=== PATIENT | female | born 1935 | race Caucasian/White ===

== ENCOUNTER 2021-04-09 16:27 | Observation (INO) | payer MEDICARE, OTHER ==
[~2021-04-09] VITALS: Ht 165.1 cm; Wt 72.5 kg
[~2021-04-09 16:27] MED LIST: AMOXICILLIN500 MG PO; ASPIR 8181 MG PO; BACTRIM DS TAB1 EACH PO; CEPHALEXIN500 MG PO; CINNAMON500 MG PO; CIPRO500 MG PO; CLINDAMYCIN HC150 MG PO; COMPLETE MULTI1 EAC2 PO; COUMADIN5 MG PO; DILTIAZEM ER180 MG PO; DOXYCYCLINE HY100 MG PO; FUROSEMIDE40 MG PO; GLIMEPIRIDE4 MG PO; GLUCOTROL XL10 MG PO; LOPERAMIDE2 MG PO; LOVENOX120 MG SUB-Q; METFORMIN HCL750 MG PO; METOPROLOL TART50 MG PO; POTASSIUM CHLO20 ME1 PO; PRESERVISION A1 EACH PO; PRILOSEC OTC20 MG PO; TOPROL XL50 MG PO; TRIAMTERENE-HC1 EAC1 PO; VITAMIN B-12500 MCG PO; VITAMIN D-32000 UNIT PO; VITAMIN D325 MCG PO; WARFARIN SODIU2.5 MG PO; WARFARIN SODIUM5 MG PO
[2021-04-10] MEDS ORDERED: WARFARIN SODIU2.5 MG PO (07:32)
[2021-04-10] MEDS ORDERED: METFORMIN HCL500 MG PO (11:27)
[2021-04-10] MEDS ORDERED: TORSEMIDE20 MG PO (11:29)
--- NOTE | 2021-04-10 20:17 | EKG ---
[facility] [address] [place], [place] [address] Signed Atrial fibrillation Right bundle branch block Abnormal ECG When compared with ECG of 26-FEB-2020 17:50, No significant change was found Confirmed by GRAHAM WALKER DO ([id number]) on 04/10/2021 8:16:54 PM Electronically Signed By: GRAHAM WALKER DO 04/10/212016 PATIENT NAME: JANETH HOFFMAN Electrocardiogram DATE OF : 33 PHYSICIAN: GRAHAM WALKER DO REPORT #: [id number] REPORT IS CONFIDENTIAL AND NOT TO BE RELEASED WITHOUT AUTHORIZATION
== END 2021-04-11 13:00 | disposition home or self-care (01) ==
LOC: ED 16:27 → MS 16:28
PROVIDERS: ADMIT Student in an Organized Health Care Education/Training Program; ATTEND Student in an Organized Health Care Education/Training Program
DX: E83.42 Hypomagnesemia (principal); I95.1 Orthostatic hypotension; I48.19 Other persistent atrial fibrillation; E11.621 Type 2 diabetes mellitus with foot ulcer; L97.509 Non-pressure chronic ulcer of other part of unspecified foot with unspecified severity; E11.40 Type 2 diabetes mellitus with diabetic neuropathy, unspecified; I10 Essential (primary) hypertension; Z79.84 Long term (current) use of oral hypoglycemic drugs; Z79.01 Long term (current) use of anticoagulants; Z20.822 Contact with and (suspected) exposure to COVID-19; Z88.6 Allergy status to analgesic agent; Z88.2 Allergy status to sulfonamides
CPT/HCPCS: 80048; 80053; 83735; 84484; 85025; 85610; 93005; 93010; 97162; J1815; J3475; J7121; U0003

== ENCOUNTER 2022-03-12 00:39 | Inpatient (IN) | payer MEDICARE, OTHER ==
[~2022-03-12] VITALS: Ht 165.1 cm; Wt 73.5 kg
[~2022-03-12 00:39] MED LIST changes: +CLOPIDOGREL75 MG PO; +DIGOX125 MCG PO; +GLIPIZIDE ER10 MG PO; +LIPITOR20 MG PO; +METFORMIN HCL500 MG PO; +TORSEMIDE20 MG PO
--- OUTSIDE RECORDS SUMMARY | 2022-03-12 00:42 | XMS ---
PreManage Notification: JANETH HOFFMAN Security Mobile Nurse Events No recent Security Events currently on file CRITERIA MET - [facility] - Has Care Guidelines - [facility] - 2 Visits in 30 Days CARE PROVIDERS KAMAR ROMERO Internal Medicine 03/04/2020-Current PHONE: Unknown Cb has no Care Guidelines for this patient. Care History Medical/Surgical 05/01/2021 [facility] will be reaching out to patient for assessment. 03/04/2020 [facility] - Patient is currently established with [facility]. If patient is seen in the ED during business hours. Please contact CHWs at [facility]. Care Recommendation: If this patient has had 5 or more Emergency Department visits in the last 12 months.\T\nbsp; Patient will require education on the scope and purpose of the ED as an acute care provider not a Primary Care Provider and should not be utilized for chronic conditions.\T\nbsp; These are guidelines and the provider should exercise clinical judgment when providing care. E.D. VISIT COUNT (12 MO.) [address] [facility] TOTAL 4 NOTE: Visits indicate total known visits. ED/UCC VISIT TRACKING (12 MO.) 03/12/2022 00:40 [facility] TYPE: Emergency COMPLAINT: - BLOODY STOOL 02/17/2022 21:28 [facility] TYPE: Emergency COMPLAINT: - BLOOD SUGAR PROBLEM DIAGNOSES: - Weakness - Other chcf (current) drug therapy - Unspecified atrial fibrillation - Type 2 diabetes mellitus with diabetic neuropathy, unspecified - Type 2 diabetes mellitus with hyperglycemia - Contact with and (suspected) exposure to COVID-19 - Allergy status to other antibiotic agents - Dehydration - Essential (primary) hypertension - Allergy status to sulfonamides - Allergy status to other drugs, medicaments and biological substances - FPC (current) use of anticoagulants - Acute kidney failure, unspecified 04/29/2021 12:17 [facility] TYPE: Emergency COMPLAINT: - ABNORMAL LABS 04/09/2021 16:27 [facility] TYPE: Emergency COMPLAINT: - DIZZINESS INPATIENT VISIT TRACKING (12 MO.) 04/29/2021 12:18 [facility] TYPE: Observation COMPLAINT: - HYPOMAGNESEMIA DIAGNOSES: - Allergy status to analgesic agent - Unspecified atrial fibrillation - Essential (primary) hypertension - Hypomagnesemia - Contact with and (suspected) exposure to COVID-19 - Type 2 diabetes mellitus with diabetic neuropathy, unspecified - termination clerk (current) use of anticoagulants - Allergy status to other antibiotic agents - Allergy status to sulfonamides - FPC (current) use of oral hypoglycemic drugs 04/09/2021 16:28 [facility] TYPE: Observation COMPLAINT: - HYPOMAGNESEMIA DIAGNOSES: - Type 2 diabetes mellitus with foot ulcer - FPC (current) use of oral hypoglycemic drugs - Non-pressure chronic ulcer of other part of unspecified foot with unspecified severity - termination clerk (current) use of anticoagulants - Allergy status to sulfonamides - Hypomagnesemia - Allergy status to analgesic agent - Orthostatic hypotension - Type 2 diabetes mellitus with diabetic neuropathy, unspecified - Contact with and (suspected) exposure to COVID-19 - Essential (primary) hypertension - Other persistent atrial fibrillation [email or web address]
--- NOTE | 2022-03-12 03:06 | NUR ---
pt to ccu with ochoa rn via madeline - moved to bed with staff assist of lateral transfer. jordan to gravity bs 421 fingerstick, pt alert with zoëugher in room. denies needs, call light in reach - blood 1st unit fusing from er - continues in ccu at 200 rate. her is tachy 120-130 - dr. landis called and updated. confirmed only 1 unit of blood, and she would address hr and diabetic care on her assessment.
--- NOTE | 2022-03-12 03:20 | NUR ---
call to dr landis - update on hr 133, bs in 300's with no orders and blood 1 unit from er - clarify only 1 bag infused. will write further orders on assessment.
--- NOTE | 2022-03-12 04:55 | NUR ---
0445 blood complete - vitals wnl - iv flushed with ns. no signs or sx of reactions.
--- NOTE | 2022-03-12 06:54 | NUR ---
pt confused, pulled our her r hand iv - and was attempting to drink from the iv tubing - because she was thirsty. pt also removed gown and blkts - wm blankets provided new linen and repositioned up in bed wm blkt to arm to attempt new iv site iv fluids moved to left arm. no bm, no blood during this shift in ccu.
--- NOTE | 2022-03-12 07:10 | NUR ---
PT WITH INCREASED CONFUSION, PULLING OFF MONITORS AND REQUESTING TO LEAVE. RE ORIENTED,
--- NOTE | 2022-03-12 07:30 | NUR ---
REPORT RECIEVED, CARE OF PT ASSUMED AT THIS TIME. PT RESTING IN BED. IV FLUIDS INFUSING. DENIES PAIN OR DISCOMFORT. CALL LIGHT WITHIN REACH. WILL CONTINUE TO MONITOR.
--- NOTE | 2022-03-12 08:15 | NUR ---
IN ROOM TO COMPLETE ASSESSMENT. DR WALLACE AT BEDSIDE WELL. PT ALERT AND ORIENTED TO SELF, LOCATION, AND EVENT. PT DENIES PAIN. ABDOMEN SOFT AND NON TENDER. FINE CRACKLES NOTED IN RIGHT LOWER LUNG BASES. ALL OTHER AIR ESTRADA CLEAR. IN AFIB WITH RVR AT THIS TIME. 5 MG IV LOPRESSOR GIVEN PER MD ORDER (SEE EMAR). PT ALSO GIVEN PO METOPROLOL. PT HAD SMALL DARK BLOOD STOOL. PLAN ESTABLISHED FOR A CONSULT WITH DR OCHOA. IV PLACED IN PTS RIGHT FOREARM. BLOOD DRAWN FOR LAB. DAUGHTER NOW AT BEDSIDE. UNDERSTANDS THE PLAN OF CARE. CALL LIGHT WITHIN REACH. WILL CONTINUE TO MONITOR.
--- NOTE | 2022-03-12 08:30 | NUR ---
Spoke with pt and daughter. Pt lives alone in [place]. She uses a walker, ramp, and shower chair. She has a CG 2-3 times per week from [employer] and is on the [place] [facility]. Daughter is unsure of number of hours she received. Daughter and granddaughter assist pt daily or every other day. Per daughter, pt is homebound and is unable to leave the home with assist from family or a cg. Pt and daughter plan on pt returning home on dc. Daughter states this has been a hard month as pt is requiring more assist. Daughter works. We discussed other programs through [employer] and I will call Paulie and request meals on wheels for this pt.
--- NOTE | 2022-03-12 09:18 | NUR ---
DR OCHOA AT BEDSIDE TO ASSESS PT. PLAN ESTABLISHED FOR PT TO GET EGD LATER TODAY. ALL QUESTIONS ANSWREED. CONSENT SIGNED AND PLACED IN CHART. DAUGHTER REMAINS AT BEDSIDE. WILL CONTINUE TO MONITOR.
--- NOTE | 2022-03-12 11:30 | NUR ---
PT TO OR WITH OR STAFF ON STRETCHER.
--- NOTE | 2022-03-12 12:34 | NUR ---
PT BACK FOR SURGERY. PT STILL DROWSY BUT ABLE TO AWAKEN WITH VERBAL STIMULI. PT SLIGHTLY HYPOTENSIVE. ANESTHESIOLOGIST EDY HAD TO GIVEN PHENYLEPHRINE FOR HYPOTENSION IN PROCEDURE. ASSESSMENT COMPLETED AT THIS TIME. CRACKLES IN LUNG BASES WORSENED SINCE LAST ASSESSMENT PT HAD ANOTHER MODERATE SIZED BLOODY STOOL. PERICARE PROVIDED AND PT REPOSITIONED IN BED. IV MAGNESIUM, FLUIDS AND ABX INFUSING. THIS RN REMAINS AT BEDSIDE.
--- NOTE | 2022-03-12 12:52 | NUR ---
BEAU LAUREANO INFORMED ME PT WAS IN SURGERY. WILL FOLLOW
--- NOTE | 2022-03-12 12:55 | NUR ---
DISCUSSED PTS ASSESSMENT FINDINGS, INCLUDING CRACKLES IN BILATERAL LUNG BASES AND POOR URINE OUTPUT WITH DR WALLACE. VERBAL ORDER FOR ONE TIME DOSE OF IV LASIX RECIEVED (SEE EMAR).
--- NOTE | 2022-03-12 13:16 | NUR ---
RN IN ROOM TO ADMINISTER IV LASIX. PT ASLEEP SNORING UPON ENTRY, WAKES EASILY WITH TOUCH - STATES "OKAY" TO ANY QUESTIONS. DAUGHTER REMAINS AT BEDSIDE. BP SLIGHTLY IMPROVED AT 109/41, P 90. URINE OUT PUT 35ML FOR LAST 2 HOURS.
--- NOTE | 2022-03-12 14:26 | NUR ---
RN IN ROOM TO OBTAIN CBG AND ADMINISTER MEDICATIONS. PT WAKES EASILY WITH TOUCH AND SOUND. PT STARTED ON BOWEL PREP - NO DIFFICULTY SWALLOWING WITH HOB ELEVATED. ATTENDS C/D/I. PT GOES BACK TO SLEEP QUICKLY.
[2022-03-12] MEDS ORDERED: NOVOLIN N100 UNIT/1 SUB-Q (14:44)
[2022-03-12] MEDS ORDERED: NYSTATIN15 GM TOP (14:45)
[2022-03-12] MEDS ORDERED: REPAGLINIDE0.5 MG PO (14:45)
--- NOTE | 2022-03-12 15:08 | NUR ---
MED REC COMPLETE
--- NOTE | 2022-03-12 15:47 | NUR ---
ASSESSMENT COMPLETED. PT COMPLETED ONE BOTTLE OF BOWEL PREP. HAD ANOTHER MODERATE SIZED BLOODY INCONTINENT STOOL AND REPOSITIONED IN BED. FINE CRACKLES STILL NOTED IN BILATERAL LUNG BASES. PT HEART RATE IN THE 90S AT REST. BLOOD PRESSURES WNL. SPO2 - 94%. SKIN ON COCCYX IS RED, BUT BLANCHABLE. CALL [facility] REACH AND BED ALARM IN PLACE. WILL CONTINUE TO MONITOR.
--- NOTE | 2022-03-12 18:22 | NUR ---
PT HAD LARGE BLOODY STOOL. BLOOD IS MAIK RED. DR WALLACE NOTIFIED. LABS ORDERED AT THIS TIME. PT HEART RATE IN THE 90-100. SPO2 = 94% ON ROOM AIR. CALL LIGHT WITHIN REACH. BED ALARM IN PLACE. WILL CONTINUE TO MONITOR.
--- NOTE | 2022-03-12 19:10 | NUR ---
PT REPORT RECEIVED FROM YEIMY YANEZ. PT RESTING IN BED, MEDICATION INFUSING PER ORDER. NO NEEDS AT THIS TIME. CALL LIGHT IN REACH, RAILS UP, DOOR OPEN.
--- NOTE | 2022-03-12 19:50 | NUR ---
IN TO CLEAN UP PT DUE TO INCONT BM, NEW LINENS, CHUX, AND ATTENDS IN PLACE, VS CHECKED, I&Os ENTERED, NO FURTHER NEEDS AT THIS TIME, PT BOOSTED IN BED, BED ALARM SET
--- NOTE | 2022-03-12 21:00 | NUR ---
ASSESSMENT COMPLETED. SCHEDULED MEDS PROVIDED. PT ORIENTED TO ALL BUT DATE. IVs WNL, CDI, FLUSHED WELL. LUNGS DIM IN BASES. HEART TONES IRREGULAR. ABD SOFT, NONTENDER, PT DENIES PAIN. CMS INTACT. SKIN HAS BLANCHABLE REDNESS ON SACRUM AND SCATTERED BRUISING ON ARMS. SCHEDULED MEDS PROVIDED. NO OTHER NEEDS AT THIS TIME. CALL LIGHT IN REACH.
--- NOTE | 2022-03-12 21:29 | NUR ---
LAB AND RN IN ROOM TO ATTEMPT BLOOD DRAW FOR CULTURES. UNABLE TO GET BLOOD AT THIS TIME. CALL LIGHT IN REACH, RAILS UP.
--- NOTE | 2022-03-12 22:15 | NUR ---
IN TO REPLACE LEFT UPPER TELE LEAD, NO FURTHER NEEDS AT THIS TIME
--- NOTE | 2022-03-12 22:50 | NUR ---
IN TO CHECK SCDS ALARM, AJDUSTED LEFT CUFF, NO FURTHER NEEDS AT THIS TIME
--- NOTE | 2022-03-12 23:30 | NUR ---
IN WITH RN TO REPOSITON PT AND CLEAN UP INCONT BM, BOOSTED, ORAL SWAB COMPLETED FOR PT, NO FURTHER NEEDS AT THIS TIME
--- NOTE | 2022-03-12 23:59 | EKG ---
[facility] [address] [place] [address] Signed Atrial fibrillation with rapid ventricular response Right bundle branch block Abnormal ECG When compared with ECG of 17-FEB-2022 21:51, T wave inversion no longer evident in Anterior leads Confirmed by GALLO WALLACE MD ([id number]) on 03/12/2022 11:59:36 PM Electronically Signed By: GALLO WALLACE MD 03/12/22 2359 PATIENT NAME: JANETH HOFFMAN Electrocardiogram DATE OF : 33 PHYSICIAN: GALLO WALLACE MD REPORT #: [id number] REPORT IS CONFIDENTIAL AND NOT TO BE RELEASED WITHOUT AUTHORIZATION
--- NOTE | 2022-03-13 00:13 | NUR ---
ASSESSMENT COMPLETED. PT CHANGED AND REPOSITIONED, MODERATE AMOUNT OF DARK RED BLOOD IN BRIEFS. DUNHAM CARE PROVIDED. IVS WNL. PT DENIES PAIN. SCDs ON. NO CHANGES AT THIS TIME. RAILS UP, CALL LIGHT IN REACH.
--- NOTE | 2022-03-13 00:46 | NUR ---
NOTIFIED MD BY PHONE OF LOW UO. NO ORDERS RECEIVED.
--- NOTE | 2022-03-13 01:32 | NUR ---
PT REPOSITIONED. SCDs OFF PER PT REQUEST, EDUCATION PROVIDED. NO OTHER NEEDS. CALL LIGHT IN REACH.
--- NOTE | 2022-03-13 02:10 | NUR ---
CRISTO COMPLETED, RN INFORMED OF VALUE
--- NOTE | 2022-03-13 02:29 | NUR ---
PT RESTING IN BED, EYES CLOSED. WAKES TO VOICE. SCHEDULED MEDS PROVIDED. PT HAS REPOSITIONED SELF. NO OTHER NEEDS. CALL LIGHT IN REACH, RAILS UP.
--- NOTE | 2022-03-13 04:30 | NUR ---
IN TO GET VITALS, DAILY WT, ORAL CARE, DUNHAM CARE, INCONT BM, CLEANED, BOOSTED AND PILLOWS TO THE LEFT SIDE, NO FURTHER NEEDS AT THIS TIME
--- NOTE | 2022-03-13 04:30 | NUR ---
ASSESSMENT, VS AND I&O COMPLETED. DUNHAM WNL. IVS WNL. RFA IV RE-DRESSED. BRIEFS CHANGED, PT HAD SMALL AMOUNT OF DARK RED DISCHARGE IN BRIEFS. LUNGS DIM IN LOWER LOBES. SCATTERED BRUISING TO ARMS UNCHANGED. PT IS TALKING AND ORIENTED TO ALL BUT DATE. HEART TONES IRREGULAR, AFIB ON MONITOR, UNCHANGED. PT DENIES PAIN. PT HAS SOB WITH ACTIVITY, ROLLING SIDE TO SIDE. NO OTHER NEEDS AT THIS TIME. TELEVISION CABINET FINISHER IN ROOM FOR CARES.
--- NOTE | 2022-03-13 06:00 | NUR ---
IV MEDICATION COMPLETED. PT RESTING IN BED. NO NEEDS AT THIS TIME. CALL LIGHT IN REACH, RAILS UP.
--- NOTE | 2022-03-13 07:02 | NUR ---
RN SENT A NOTE IN [facility]aint ABOUT HGB ABD HCT LABS GOING DOWN THIS MORNING.
--- NOTE | 2022-03-13 07:36 | NUR ---
REPORT RECEIVED FROM NIGHT RN - PT ASLEEP ON SIDE, RR EVEN AND UNLABORED. NO DISTRESS NOTED. CALL LIGHT IN REACH, BED ALARM ON.
--- NOTE | 2022-03-13 08:15 | NUR ---
BLOOD ADMINISTRATION STARTED PER ORDER AND USING PROTOCOL CHECKLIST.
--- NOTE | 2022-03-13 08:30 | NUR ---
VS STABLE AFTER 15 MINUTE BLOOD INFUSION LAPSE. PT TOLERATING WITHOUT DIFFICULTY. ASSESSMENT COMPLETE, ORIENTATION IMPROVED THIS AM, TALKATIVE AND HOLDING CONVERSATION. SMALL GREEN/BROWN/RED BM CLEANED - NEGATIVE FOR MAIK BLOOD. DUNHAM PATENT AND URINE OUTPUT ADEQUATE PER HOUR. DAUGHTER AT BEDSIDE, ALL QUESTIONS ANSWERED.
--- NOTE | 2022-03-13 09:54 | NUR ---
RN ROUNDING ON PT - RESTING ON SIDE COMFORTABLY, BLOOD INFUSION CONTINUES. DENIES PAIN OR SOB. DAUGHTER AT BEDSIDE.
--- NOTE | 2022-03-13 10:40 | NUR ---
Spoke with pt and daughter, Aislinn. They deny needs. Pt will have a colonoscopy later today per daughter. Let them know I called and left a message for Paulie from [facility] asking if he could eval pt for MOW.
--- NOTE | 2022-03-13 11:30 | NUR ---
RN ROUNDING ON PT - RESTING IN BED ON SIDE, ABX INFUSING. DAUGHTER AT BEDSIDE.
--- NOTE | 2022-03-13 11:52 | NUR ---
PT RESTINMG AWAKENS TO THE SOUND OF MY VOICE. HER DAUGHTER JACQUELYN IS IN RM WELL. PT IS SOMEWHAT CONFUSED, SEEMS TO RELY ON HER DAUGHTER TO ANSWER SOME QUESTONS. PT DID WANT HER MAIL SORTER AND DELIVERY NOTIFIED-DID INFORM HIM SHE IS HERE. PT REQUESTED PRAYER, WILL FOLLOW
--- NOTE | 2022-03-13 12:19 | NUR ---
RN IN ROOM TO ASSESS PT - PT RESTING IN BED UPON ENTRY. WAKES EASILY WITH VOICE. PT DENIES COMPLAINTS. AAO. DUNHAM PATENT, URINE OUTPUT SUFFICENT. IV SITE TOLERATING ABX WITHOUT DIFFICULTY. LEFT LOWER LOBE LUNG SOUNDS WORSENING CRACKLES POST BLOOD INFUSION NOTED. PT DENIES SOB. VS STABLE. PT READY FOR COLO PROCEDURE.
--- NOTE | 2022-03-13 13:16 | NUR ---
RN ROUNDING ON PT - DENIES COMPLAINTS, REPOSISTIONED TO BACK. CLEAN CHUX PLACED UNDER PT AND ATTENDS REMOVED FOR PROCEDURE, LOOSE STOOLS HAVE CEASED. DAUGHTER REMAINS AT BEDSIDE.
--- NOTE | 2022-03-13 13:58 | NUR ---
PT OFF FLOOR TO OR VIA STRETCHER
--- NOTE | 2022-03-13 15:19 | NUR ---
PT BACK TO FLOOR FROM OR.
--- NOTE | 2022-03-13 15:40 | NUR ---
PATIENT IS DOING WELL POST PROCEDURE. PATIENT IS ON RA WITH SPO2 96%. PATIENT IS TOLERATING WELL.
--- NOTE | 2022-03-13 15:51 | NUR ---
DR MONTALVO IN ROOM AT THIS TIME TO ASSESS PT. PLAN ESTABLISHED TO DC PROJECT MANAGEMENT PROFESSOR AND DUNHAM. GIVE PT IV FLUIDS. PT NOW A MEDICAL FLOOR PT. PT ALERT AND ORIENTED. UNDERSTANDS PLAN OF CARE.
--- NOTE | 2022-03-13 16:28 | NUR ---
ASSESSMENT COMPLETED. DUNHAM CATHETER DC'D. WELL TOLERATED BY PT. IV FLUIDS NOW INFUSING. DIGOXIN ADMINISTERED.
--- NOTE | 2022-03-13 17:01 | NUR ---
PT UP TO BSC TO VOID. ONE PERSON ASSIST REQUIRED. PT NOW UP IN CHAIR. IV FLUIDS INFUSING. PT EATING CLEAR LIQUID TRAY. DAUGHER AT BEDSIDE. CALL LIGHT WITHIN REACH. WILL CONTINUE TO MONITOR.
--- NOTE | 2022-03-13 17:50 | NUR ---
PT TRANSFERRED TO UNIT FROM CCU. PT IS SITTING UP IN CHAIR. IV BOLUS RUNNING. PT IS A/O, RESPIRATIONS EVEN AND REGULAR. FAMILY AT BEDSIDE. CALL LIGHT WITHIN REACH.
--- NOTE | 2022-03-13 18:21 | NUR ---
PATIENT BACK TO BED AFTER MEAL. VITALS AND I/O'S COMPLETED. PT HAS NO OTHER NEEDS AT THIS TIME. DAUGHTER IN ROOM. CALL LIGHT WITHIN REACH.
--- NOTE | 2022-03-13 18:47 | NUR ---
ROUNDED ON PT. IVF BOLUS COMPLETED, CONTINUOUS NOW RUNNING. PT IS A/O, RESPIRATIONS EVEN AND REGULAR. CALL LIGHT WITHIN REACH.
--- NOTE | 2022-03-13 20:30 | NUR ---
IN TO ASSIST PT WITH INCONT BM, SMALL, NEW ATTENDS, NO FURTHER NEEDS AT THIS TIME
--- NOTE | 2022-03-13 21:00 | NUR ---
PATIENT RESTING IN BED, APPEARS TO BE HAVING LIQUID BMS. CBG 333 AT HS, NOTED ANTIBIOTICS ARE MIXED IN A D5 SOLUTION, ALSO PATIENT CONCERNED SHE IS NOT EATING HER NORMAL DIABETIC DIET THAT SHE IS USE TO. FULL BODY ASSESMENT DONE, NO ACUTE CHANGES. AMDINISTERED HS MEDICATIONS. APPEARS ALERT AND ORIENTED, CALLS APPROPRIATELTY.
--- NOTE | 2022-03-13 22:30 | NUR ---
NOTIFIED DR. MONTALVO OF PATIENT HAVING BLOODY STOOLS AND CONCERNS OF LOW H/H. DR. MONTALVO VERBALIZED OK.
--- NOTE | 2022-03-13 23:49 | NUR ---
PATIENT CALLED REPORTING NEEDING BRIEF CHANGED. PATIENT REPORTED CONCERNS OF SKIN BREAKDOWN AND POSSIBLE YEAST INFECTIONS FROM ANIKA SUPPLES AND CARE. CHANGED OUT BABY WIPES FOR BARRIER CLOTHS AND INSTEAD OF CLOSING ATTEND HAVE IT LAID OPEN IN BED. PATIENT VERBALIZED " THANK YOU" AND IS CONTENT WITH POC. WHEN CHANGING BRIEF, NOTED SMALL BLOOD CLOTS MIXED WITH BURGANDY STOOL. PROVIDED WARM BLANKETS AND PLACED PULSE OX ON FINGER. PATIENT 95% ON RA. NO OTHER NEEDS AT THIS TIME.
--- NOTE | 2022-03-14 00:32 | NUR ---
PATIENT CALLED AGAIN TO HAVE ATTEND CHANGED. SMALL BLOODY STOOL NOTED. PROVIDED ANIKA CARE. NO OTHER NEEDS AT THIS TIME.
--- NOTE | 2022-03-14 00:46 | NUR ---
INTO CHECK ON PATIENT, CPOX 85% ON ROOM AIR. PLACED PATIENT ON 2L NC, NOTIFIED RT JAVID. OXYGEN SAT 92% 2LNC.
--- NOTE | 2022-03-14 04:10 | NUR ---
CPOX ALARMING, PT HAD PULLED SENSOR OFF, REPLACED, PT THEN INCONT BM, CLEANED UP, NO FURTHER NEEDS AT THIS TIME
--- NOTE | 2022-03-14 05:01 | NUR ---
PATIENT HAD LOOSE BLOODY STOOLS ABOUT EVERY 2 HOURS THROUGHOUT THE NIGHT. INCONTINENT OF SOME, SOMETIMES ABLE TO TRANSFER OVER TO BSC. PATIENT DENIES ANY SOB OR DIZZINESS. VS WNL. GOOD URINE OUTPUT. NOTIFIED DR. MONTALVO OF BLOODY STOOLS.
--- NOTE | 2022-03-14 05:45 | NUR ---
IN TO GET PT CLEANED UP, PT HAD A BM, VS CHECKED, FRESH WATER GIVEN, NO FURTHER NEEDS AT THIS TIME
--- NOTE | 2022-03-14 07:30 | NUR ---
THIS RN AND BEAU HAWLEY RECEIVED SHIFT REPORT FROM BEAU COURTNEY. PATIENT RESTING QUIETLY ON HER RIGHT SIDE, RESPIRATIONS ARE REGULAR AND EVEN, EYES CLOSED, CALL LIGHT IS IN REACH. PATIET HAS NO CARE NEEDS AT THIS TIME. CALL LIGHT IS IN REACH.
--- NOTE | 2022-03-14 07:57 | NUR ---
IN TO ASSIST LABORATORY EQUIPMENT INSTALLER. 2 PERSON ASSIST PT TO COMMODE AND TO CHAIR. DARK RED LIQUID STOOL NOTED.
--- NOTE | 2022-03-14 08:16 | NUR ---
PATIENT UP IN CHAIR FOR MEAL AFTER USING BSC. BLOOD IN STOOL REPORTED TO NURSE AND WATER GIVEN. PT HAS NO OTHER NEEDS AT THIS TIME, CALL LIGHT WITHIN REACH.
--- NOTE | 2022-03-14 09:03 | NUR ---
IN ROOM TO GIVE MORNING MEDICATIONS. PT SITTING UP IN CHAIR WITH MEAL TRAY. PT TAKE PO MEDICAITONS WITH NO ISSUES. ASSESSMENT COMPLETE. RLL LUNG SOUNDS CRACKLES. PT HAS HX OF AFIB. BRUISING NOTED TO BUE. PT REPORTS NEUROPATHY IN BLE. PT WAS UNABLE TO TELL WHEN RLE WAS BEING TOUCHED, BUT COULD MOVE BLE WITH NO ISSUES AND FOLLOWS COMMANDS. NO OTHER NEEDS AT THIS TIME. PT SITTING IN CHAIR WITH CALL LIGHT IN REACH.
--- NOTE | 2022-03-14 10:25 | NUR ---
IN TO ANSWER CALL LIGHT. PT REQUESTING TO GO BACK TO BED. BERNABE RN IN ROOM TO ASSIST WITH 2PA. DARK RED LIQUID STOOL NOTED. TOILETING HYGIENE PERFORMED. PT BACK TO BED. PT STATES "DO YOU SEE THE WRITING ON THE CEILING?" PT A&O TO PERSON, PLACE AND TIME. PT HAS NO OTHER NEEDS AT THIS TIME. PT LAYING IN BED WITH CALL LIGHT IN REACH.
--- NOTE | 2022-03-14 10:52 | NUR ---
IN ROOM TO GIVE SCHEDULED MEDICATION, SEE AUGUSTO. PT LAYING IN BED, FAMILY IN THE ROOM. NO OTHER NEEDS AT THIS TIME.
--- NOTE | 2022-03-14 12:40 | NUR ---
IN ROOM TO GIVE INSULIN, SEE MAR. PT TOLERATES SUB-Q INJECTION WELL. MEAL TRAY AT BEDSIDE. PT LAYING IN BED WITH CALL LIGHT IN REACH. NO OTHER NEEDS AT THIS TIME.
--- NOTE | 2022-03-14 13:16 | NUR ---
PATIENT IN BED AFTER MEAL. VITALS AND I/O'S COMPLETED. PT HAS NO OTHER NEEDS AT THIS TIME. CALL LIGHT WITHIN REACH.
--- NOTE | 2022-03-14 13:39 | NUR ---
IN TO ANSWER CALL LIGHT. PT LAYING IN BED REQUESTING TOILETING HYGIENE. DR. MONTALVO IN ROOM. NEW ATTEND PLACED, NEW GOWN PLACED. NO OTHER NEEDS AT THIS TIME. PT LAYING IN BED WITH CALL LIGHT IN REACH.
--- NOTE | 2022-03-14 14:40 | NUR ---
IN ROOM TO ADMINISTER BLOOD. BERNABE RN IN ROOM AND VERIFIES BLOOD PRODUCT. PRE VITALS DONE. 15 MINUTE VITALS DONE. ASSESSMENT COMPLETE. PT LAYING IN BED WITH EYES OPEN. RUL LUNG SOUNDS CRACKLES. RLL DIMINISHED WITH CRACKLES. DARK RED LIQUID BM WITH SOME URINE NOTED. NO OTHER NEEDS AT THIS TIME. PT LAYING IN BED ON LEFT SIDE WITH CALL LIGHT IN REACH.
--- NOTE | 2022-03-14 16:10 | NUR ---
IN FOR PT ROUNDING. BERNABE RN IN ROOM. PT LAYING IN BED REQUESTING TOILETING. TOILETING CARE PROVIDED. 2PA FROM BED TO COMMODE AND BACK TO BED. PT LAYING IN BED WITH EYES OPEN. IV FLUSH RUNNING. NO OTHER NEEDS AT THIS TIME CALL LIGHT IN REACH.
--- NOTE | 2022-03-14 16:27 | NUR ---
PT REQUESTING WATER. WATER PROVIDED. NO OTHER NEEDS AT THIS TIME. CALL LIGHT IN REACH. PT SITTING UP IN BED.
--- NOTE | 2022-03-14 16:45 | NUR ---
IN ROOM DUE TO IV PUMP ALARMING. FLUSH FINISHED. TOTAL VOLUME INFUSED 446, 300 OF BLOOD AND 146 OF NS. PACKING ROOM WORKER IN ROOM TO HELP TRANSFER PT TO CHAIR. 2PA FROM BED TO CHAIR. NO OTHER NEEDS FROM THIS RN AT THIS TIME. CALL LIGHT IN REACH.
--- NOTE | 2022-03-14 17:46 | NUR ---
IN TO GIVE EVENING INSULIN. PT SITTING UP IN CHAIR WITH MEAL TRAY. PT TOLERATES SUB-Q INJECTION WELL. FAMILY IN THE ROOM. CALL LIGHT IN REACH. NO OTHER NEEDS AT THIS TIME.
--- NOTE | 2022-03-14 18:25 | NUR ---
THIS RN CALLED DR. MONTALVO TO INFORM HIM THAT THE PATIENT'S POST OP B/P WAS 129/109 AT 1645 AND WAS NOW AT 139/90. VERBALIZED UNDERSTANDING AND AND HAD NO NEW ORDERS FOR ME AT THIS TIME.
--- NOTE | 2022-03-14 19:30 | NUR ---
REPORT RECEIVED FROM DAY RN - PT RESTING IN BED AWAKE, DENIES NEEDS AT THIS TIME, DAUGHTER AT BEDSIDE.
--- NOTE | 2022-03-14 20:33 | NUR ---
RN IN ROOM TO ASSESS PT AND ADMINISTER SCHEDULED MEDICATIONS. PT AWAKE IN BED RESTING ON SIDE. PT AAO, STATES SHE FEELS BETTER THIS EVENING. DAUGHTER UPDATED ON CBC VALUES THIS EVENING POST BLOOD TRANSFUSION. DENIES QUESTIONS AT THIS TIME.
--- NOTE | 2022-03-14 21:21 | NUR ---
PATIENT CALLED, REQUEST TO GET UP TO BS. MEENUN TRANSFERED TO BS WITH 1 PERSON ASSIST AND DID WELL WITH WALKER. VOIDED MIX URINE/BLOODY LIQUID STOOL 600 ML. PAD SATURATED WITH BLOODY LIQUID STOOL. PROVIDED ANIKA CARE, AND OFFERED HS CARES. PATIENT BACK TO BED STATING " I HAVE TO STAY INDEPENDANT" PATIENT ABLE TO SLOWLY MOVE BACK OVER, APPEARED FATIGUED AFTER ACTIVITY. PROVIDED WARM BLANKET, AND DIET KO. NO OTHER NEEDS AT THIS TIME. WARM COMPRESS REAPPLIED TO NECK. PATIENT STATED " THE WARMTH IS REALLY HELPING MY SORE NECK" RATES PAIN IN NECK A 4/10 ON PAIN SCALE. CALL LIGHT WITHIN REACH.
--- NOTE | 2022-03-14 22:30 | NUR ---
IN TO ASSIST PT WITH THE BSC, 1PA FWW PIVOT, BACK TO BED, NO FURTHER NEEDS AT THIS TIME
--- NOTE | 2022-03-15 | NUR ---
RN ROUNDING ON PT - RESTING IN BED ASLEEP ON SIDE. CALL LIGHT IN REACH.
--- NOTE | 2022-03-15 00:45 | NUR ---
RN IN ROOM TO ASSIST PT TO BSC. PT INC OF MODERATE AMOUNT OF MAIK BLOOD WITH BURGENDY CLOTS. PT CLEANED AND LINENS CHANGED. DENIES DIZZINESS OR SOB WITH STAND AND PIVOT. BACK TO BED WITH WARM BLANKETS. CALL LIGHT IN REACH.
--- NOTE | 2022-03-15 03:20 | NUR ---
INSTRUMENT PROCESSING TECH IN ROOM TO OBTAIN CBG. PT FALLS BACK ASLEEP QUICKLY AFTERWARD, NO INSULIN NEEDED.
--- NOTE | 2022-03-15 06:00 | NUR ---
RN IN ROOM TO ASSESS PT AND ADMINISTER SCHEDULED MED. PT ASLEEP UPON ENTRY BUT WAKES EASILY WITH SOUND. PT DENIES PAIN OR COMPLAINTS. ASSESSMENT UNCHANGED. ATTENDS CLEAN AND DRY. SCDS IN PLACE. CALL LIGHT IN REACH.
--- NOTE | 2022-03-15 07:30 | NUR ---
PATIENT GOT UP TO USE THE CAMMODE. BLOOD AND CLOTS IN THE STOOL. PATIENT GOT UP TO THE CHAIR. CALL LIGHT WITH IN REACH. NO FURTHER NEEDS AT THIS TIME.
--- NOTE | 2022-03-15 07:30 | NUR ---
REPORT RECEIVED FROM BEAU KING. CHIEF DIETITIAN IN ROOM WITH ANOTHER RN ASSISTING PT WITH TOILETING. NO NEEDS FROM THIS RN AT THIS TIME.
--- NOTE | 2022-03-15 07:30 | NUR ---
THIS RN AND BEAU HAWLEY RECEIVED SHIFT REPORT FROM BEAU KING. PATIENT RESTING QUIETLY ON HER RIGHT SIDE, EYES CLOSED, RESPIRATIONS ARE REGULAR AND EVEN, AND CALL LIGHT IS IN REACH. PATIENT HAS NO NURSE CARE NEEDS AT THIS TIME.
--- NOTE | 2022-03-15 08:56 | NUR ---
IN ROOM FOR MORNING MEDICATIONS. PT SITTING UP IN CHAIR WITH MEAL TRAY. PT TOLERATES SUB-Q INJECTION WELL, NO ISSUES. ASSESSMENT COMPLETE. EDEMA TO BLE, PTs LEGS ELEVATED IN CHAIR. SCATTERED BRUISING NOTED TO BUE. LLL LUNG SOUNDS DIMINISHED. PT A&O TO PERSON, PLACE AND DATE. NO OTHER NEEDS AT THIS TIME. PT SITTING UP IN CHAIR WITH MEAL TRAY AND CALL LIGHT IN REACH.
--- NOTE | 2022-03-15 10:45 | NUR ---
IN ROOM TO ROUND ON PT. PT SITTING IN CHIR WITH EYES CLOSED. PT AWAKES EASILY WHEN SPOKEN TO. PT REQUESTING TO GO BACK TO BED. BERNABE RN IN ROOM TO SUPERVISE. PT ABLE TO GET UP FROM CHAIR BY SELF AND USE FWW TO BED WITH STANDBY ASSIST. PT LAYING IN BED WITH HOB SLIGHTLY ELEVATED AND SCDs ON. NO OTHER NEEDS AT THIS TIME. CALL LIGHT IN REACH.
--- NOTE | 2022-03-15 13:01 | NUR ---
IN TO GIVE INSULIN, SEE MAR. VARELA RN IN ROOM ASSISTING WITH TOILETING. PT TOLERATED SUB-Q INJECTION WELL. ASSISTED PT FROM COMMODE TO CHAIR. MEAL TRAY IN ROOM. NO OTHER NEEDS AT THIS TIME. CALL LIGHT IN REACH.
--- NOTE | 2022-03-15 14:03 | NUR ---
IN ROOM TO ROUND ON PT. PT REQUESTING TO GET BACK INTO BED. PT ABLE TO PUSH UP FROM CHAIR TO STAND AND AMBULATES WITH FWW TO BED. ASSESSMENT COMPLETE. NO CHANGES FROM PREVIOUS ASSESSMENT. FAMILY FRIENDS IN THE ROOM. PT LAYING IN BED WITH CALL LIGHT IN REACH. NO OTHER NEEDS AT THIS TIME.
--- NOTE | 2022-03-15 15:13 | NUR ---
RADIOLOGY WANTED A GFR WITHIN 24 HOURS THAT IS GREATER THAN 40. CALLED DR[address] MONTALVO, NEW ORDERS RECEIVED. BMP NOW AND TO RUN 1800 LABS NOW WELL. CALLED LAB, LAB ON THEIR WAY.
--- NOTE | 2022-03-15 15:30 | NUR ---
IN TO ASSIST WITH TOILETING. BEAU KIDD IN ROOM. PT ABLE TO PUSH UP FROM BED TO STANDING POSITION WITH FWW AND TURN TO USE COMMODE. PT ABLE TO PUSH UP FROM COMMODE TO STANDING POSTION WITH FWW AND TURN AND SIT BACK DOWN ON BED ONCE FINISHED WITH TOILETING. BM IS GREEN/BROWN LIQUID WITH DARK RED FLECKS. PT REQUESTING WATER WITH NO ICE. WATER WITH NO ICE PROVIDED. NO OTHER NEEDS AT THIS TIME.
--- NOTE | 2022-03-15 16:50 | NUR ---
IN ROOM TO GIVE PT CONTRAST. PT DRINKS CONTRAST WITH NO ISSUES. PT REQUESTS TO USE COMMODE. STANDBY ASSIST FROM BED TO COMMODE AND BACK TO BED. MEAL TRAY DELIVERED. NO OTHER NEEDS AT THIS TIME. CALL LIGHT IN REACH.
--- NOTE | 2022-03-15 17:21 | NUR ---
PATIENT RESTING COMFORTABLY AFTER MEAL. VITALS AND I/O'S COMPLETED. PT HAS NO OTHER NEEDS AT THIS TIME. CALL LIGHT WITHIN REACH.
--- NOTE | 2022-03-15 17:28 | NUR ---
IN ROOM TO GIVE MEDICATION, SEE MAR. PT TAKES PO MEDICATION WITH NO ISSUES AND TOLERATES SUB-Q INJECTION WELL. PT SITTING IN BED WITH CALL LIGHT IN REACH. PT RESPONDS APPROPRIATLEY. PT REQUESTING MORE WATER, WATER PROVIDED. NO OTHER NEEDS AT THIS TIME.
--- NOTE | 2022-03-15 18:07 | NUR ---
2ND DOSE OF GASTRGRAFIN GIVEN IN 20 OZ. PATIENT HAD A LARGE LIQUID BM INCONTINENEC AND THIS RN AND BEAU HAWLEY ASSISTED PATIENT WITH FWW TO THE BED SIDE COMMODE WHERE SHE VOIDED 500MLS URINE. THIS IS THE LARGEST BM PATIENT HAS HAD TODAY AND NO MAIK RED BLOOD OR LARGE CLOTS, JUST LIQQUIDY RUST COLORED STOOL. PATIENT BACK IN BED STILL WORKING ON PO CONTRAST. RADIOLOGY SCHEDULED TO ARRIVE AT [address]. CALL LIGHT IN REACH AND FAMILY MEMEBER AT BEDSIDE.
--- NOTE | 2022-03-15 19:00 | NUR ---
THIS RN CALLED AND INFORMED HIM ABOUT THE PATIENT'S PREVIOUS LARGE RUST COLORED BM, JUST TO LET HIM KNOW THERE WAS STILL SOME BLOOD COMING OUT, BUT NO MAIK BLOOD OR CLOTS. VERBALIZED UNDERSTANDING. PATIENT ON THE WAY TO CT.
--- NOTE | 2022-03-15 19:50 | NUR ---
PATIENT BACK FROM CT AND INCONT OF STOOL. PATIENT ASSISTED A 1PA W/FWW TO [facility]. PATIENT ABLE TO VOID. BED BATH COMPLETED. NEW GOWN AND SOCKS PROVIDED. PATIENT IS NOW IN BED RESTING. PATIENT DENIES ANY FURTHER NEEDS. CALL LIGHT IN REACH. FAMILY AT THE BEDSIDE.
--- NOTE | 2022-03-15 21:01 | NUR ---
1 PA/SBA. PATIENT GOT UP FROM BED TO BEDSIDE COMMODE USING WALKER. PATIENT HAD UNCONTROLLABLE BM AND PEEING AT THE SAME TIME BEFORE SITTING ON THE COMMODE. CHANGED MESH UNDERWEAR WITH PAD. CHANGED SCD LEG WRAP. PATIENT IS BACK IN BED. LORA YANEZ WAS WITH PATIENT.
--- NOTE | 2022-03-15 21:10 | NUR ---
PATIENT CBG 68, NON-SYMPTOMATIC. PATIENT STATES " I CANNOT TELL THAT I AM LOW" PROVIDED 240 ML OF CRANBERRY AND KO SPRITE WITH 1 SUGAR PACKET. PATIENT TOLERATED WELL AT 2044 2099 RECHECKED BLOOD SUGAR, CBG 71. PROVIDED PATIENT WITH CLEAR ENSURE 240 ML. LACI APPEARS TO BE TOLERATING FLUIDS WELL, HOB ELEVATED. RECHECK 15MINUTES.
--- NOTE | 2022-03-15 21:34 | NUR ---
RECHECKED CBG 10O. NOTIFIED DR. MONTALVO WHO VERBALIZED WOULD ADJUST INSULIN LEVELS. ALSO NOTIFIED OF CT RESULTS BACK. PATIENT UPDATED, PROVIDED WARM BLANKET. NO OTHER NEEDS AT THIS TIME.
--- NOTE | 2022-03-15 23:35 | NUR ---
INTO THE ROOM CALL LIGHT ANSWERED. 1 PA TO BEDSIDE COMMODE. PATIENT WAS POOPING BEFORE REACHING THE COMMODE. PATIENT IS BACK IN BED. ASSISTED IN WIPING/CLEANING ANIKA AREA. APPLIED BARRIER CREAM. PATIENT IS BACK IN BED. SCD'S BACK ON. CALL LIGHT WITHIN REACH.
--- NOTE | 2022-03-16 | NUR ---
PATIENT UP TO BSC, VOIDED 300 ML OF URINE, NO STOOL. PATIENT STBY ASSIST WITH WALKER, STEADY ON FEET. BACK INTO BED USING INCENTIVE SPIROMETER, ABLE TO RAISE WAFER TO 1200 ML. PROVIDED EDUCATION ON PREVENTION OF PNEAMONIA.
--- NOTE | 2022-03-16 01:28 | NUR ---
CBG 172, ADMINISTERED 2 UNITS OF HUMALOG PER SLIDING SCALE, ALONG WITH 0200 DOSE OF SODIUM BICARBONATE AND POTASSIUM PO. PATIENT TOLERATED WELL WITH SIPS OF CLEAR ENSURE. PATIENT BACK TO SLEEP, APPEARS TO BE RESTING WELL.
--- NOTE | 2022-03-16 03:26 | NUR ---
APPEARS TO BE RESTING SOUNDLY. LIGHTS ON PER HER REQUEST. CALL LIGHT WITHIN REACH.
--- NOTE | 2022-03-16 04:12 | NUR ---
PATIENT CALLED TO USE BSC, TRASFERED WITH STBY AND WALKER. STEADY ON FEET, PATIENT REQUESTED TO BE ABLE TO SIT ON BSC FOR AWHILE. VERBALIZED WILL CALL WHEN READY. APPEARS AAOX3. CALL LIGHT IN HAND.
--- NOTE | 2022-03-16 04:25 | NUR ---
500ML OF URINE AND (LIN) BLOODY LIQUID STOOL MEASURED. CLEANSED AND APPLIED BARRIER OINTMENT. PATIENT THEN BACK TO BED, APPEARS STEADY ON FEET. PATIENT USING INCENTIVE SPIROMETER. VS WNL.
--- NOTE | 2022-03-16 07:15 | NUR ---
REPORT RECEIVED FROM BEAU COURTNEY. PT SITTING UP IN BED WITH EYES CLOSED. RR EVEN AND UNLABORED. NO NEEDS IDENTIFIED AT THIS TIME.
--- NOTE | 2022-03-16 08:14 | NUR ---
IN ROOM TO GIVE MEDICATION. PT SITTING UP IN CHAIR WITH LEGS ELEVATED. PT STATES "I AM STILL SLEEPY" PT AWAKENS EASILY. SUB-Q INSULIN INJECTION TOLERATED WELL BY PT. ASSESSMENT COMPLETE. RLL AND LLL LUNG SOUNDS DIMINISHED. HEART RHYTHM IRREGULAR WHEN AUSCULTATING. BRUISING TO BUE. EDEMA TO BUE AND BLE. PT REQUESTING AN EXTRA PILLOW BEHIND HEAD. PILLOW PLACED BEHIND HEAD. NO OTHER NEEDS AT THIS TIME. CALL LIGHT IN REACH.
--- NOTE | 2022-03-16 10:15 | NUR ---
IN ROOM TO ASSIST DIRECTOR OF MARKETING [employer] ADS WITH TOILETING PT. PT ABLE TO PUSH SELF UP FROM CHAIR TO STANDING POSITION AND USE FWW TO COMMODE. LIQUID STOOL MAROON IN COLOR MIXED WITH URINE ALONG WITH WHAT APPEARES TO BE TWO PILL LIKE TABLETS. PT OFFERED SHOWER, PT ACCEPTS SHOWER. PT AMBULATES WITH FWW AND STANDBY ASSIST TO SHOWER. SHOWER COMPLETED BY TONNY MITCHELL. PT AMBULATES FROM SHOWER TO BED AND REYES OWN HAIR. NO OTHER NEEDS FROM THIS RN AT THIS TIME. TONNY MITCHELL STILL IN ROOM.
--- NOTE | 2022-03-16 11:11 | NUR ---
ANSWERED PATIENT'S CALL LIGHT. MARLEEN WAS COMING TO HELP PUT HER BACK TO BED. SHE CHANGED HER MIND AND SAID SHE HAD TO USE THE BEDSIDE COMMODE. WHILE SHE WAS SITTING THERE I ASKED HER IF SHE WOULD LIKE TO TAKE A SHOWER AND SHE SAID IT WAS UP TO US. SHE SAID MAYBE LATER. WHEN WE WERE GETTING READY TO GET HER OFF THE BEDSIDE COMMODE I SAID WE WILL GET YOU BACK TO BED AND SHE SAID I THOUGHT I WAS GETTING A SHOWER. SO SHE GOT SHOWER.
--- NOTE | 2022-03-16 11:51 | NUR ---
IN ROOM TO ADMINISTER INSULIN. PT SITTING UP IN CHIAR WITH LEGS ELEVATED. PT TOLERATES SUB-Q INJECTION WELL. DR. MONTALVO IN ROOM TALKING TO PT ABOUT DC TODAY. ORDERS RECEIVED TO DC PT TODAY. QUESTIONS ANSWERED. PT CALLING FAMILY FOR RIDE HOME. NO OTHER NEEDS AT THIS TIME. CALL LIGHT IN REACH.
--- NOTE | 2022-03-16 12:15 | NUR ---
Received a call from Roseanne Vitaly, pts daughter. States mom had called and is planning on dc at 2 pm today. Let her know I have not seen pt yet. She states concern as they are not ready for pt to dc. They threw out pts bed as she had a GI bleed on it. She states they are also concerned pt will be weak and unable to walk from the car into the home on dc. Updated, per 929 report pt is up in the room without problem and anxious to go home. I will call Dr. Bansal and request a PT eval. Spoke with Dr. Bansal and he ordered PT eval and states he will order PT for this pt when eval is completed.
--- NOTE | 2022-03-16 12:45 | NUR ---
IN ROOM TO ANSWER CALL LIGHT. PT SITTING UP IN CHAIR WITH MEAL TRAY. PT REPORTS "I DO NOT KNOW WHERE THIS IS COMMING FROM" PTs TRAY HAD MASHED POTATOES AND GRAVY, THE GRAVY HAD GOTTEN ON PTs ARM. PT REPORTS "I THOUGHT I WAS BLEEDING." THIS RN GRABBED A WASH CLOTH AND CLEANED UP THE GRAVY FROM THE PTs ARM AND CHAIR. PT REPORTS "THE BROCCLI IS NOT TENDER ENOUGH FOR ME TO EAT. I WILL NO DRINK THE MILK." THIS RN OFFERED TEA, PT ACCEPTS TEA. OFFERED IF PT WANTED SOMETHING ELSE TO REPLACE THE BROCCLI, PT DECLINED. NO OTHER NEEDS AT THIS TIME. PT SITTING UP IN CHIAR WITH MEAL TRAY. CALL LIGHT IN REACH.
--- NOTE | 2022-03-16 14:23 | NUR ---
PT ASLEEP, DID NOT DISTURB
--- NOTE | 2022-03-16 14:25 | NUR ---
THIS RN IN TO SEE PATIENT AND PT IS IN THE ROOM DOING AN EVAL AT THIS TIME.
--- NOTE | 2022-03-16 14:30 | NUR ---
Notified by Dr. Serna, pt had a stroke and he will notify the family she will not discharge.
--- NOTE | 2022-03-16 14:33 | NUR ---
PATIENT WORKING WITH PHYSICAL THERAPY PRE DISCHARGE WHEN PATIENT BECAME VERBALLY UNRESPONSIVE (1425). CODE STROKE INITIATED VIA [employer] [place] MACHINE TENDER AT 1427, VITALS DONE AND ENTERED. PATIENT IS SLURRING WORDS, GAZE FIXED TO RIGHT. DR. MONTALVO IN ROOM. PATIENT TO CT SCAN AT 1429.
--- NOTE | 2022-03-16 15:30 | NUR ---
THIS RN PRESENT IN THE ROOM WITH PATIENT. NIH STROKE SCORE=22. PATIENT'S SPEECH IS A LITTLE SLURRED, BUT SHE IS ORIENTED TO PERSON PLACE AND TIME. PATIENT UNABLE TO MOVE HER LEFT ARM AND LEG. PATIENT GAZE IS STUCK IN THE RIGHT UPPER FIELD AT THIS TIME. NEW 20G IV STARTED IN THE LAC. THIS RN AND BEAU HAWLEY REMAIN AT BEDSIDE WITH PATIENT.
--- NOTE | 2022-03-16 15:45 | NUR ---
PATIENT ABLE TO READ ALL PHRASES NOW FOR NIH STROKE SCALE. PATIENT IS NOW MOVING ALL LIMBS WITH SOME PROFOUND WEAKNESS IN THE LEFT HAND. PATIENT ABLE TO NAME MOST OF THE ITEMS ON THE VISUAL SHEET. PATIENT ABLE TO TURN HER HEAD TO THE LEFT NOW AND CAN FOLLOW MY FINGER VISUALLY, BUT NO PAST CENTER TO THE LEFT.
--- NOTE | 2022-03-16 16:00 | NUR ---
PATIENT'S CONDITION CONTINUES TO IMPROVE. MORE CONTROLLED MOVEMENT OF THE LEFT LEG AND LEFT ARM IS PRESENT, PATIENT'S VERBAL RESPONSE IS A LITTLE MORE UNDERSTANDABLE. PATIENT CAN FOLLOW MY VOICE AND TURN HER HEAD TO THE LEFT NOW, BUT STILL CAN'T MOVE HER EYES PAST MIDLINE TO THE LEFT AND CAN'T SEE IN THE LEFT VISUAL FIELD. THIS RN AND BEAU HAWLEY REMAIN AT BEDSIDE.
--- NOTE | 2022-03-16 16:30 | NUR ---
PATIENT CONTINUES TO IMPROVE. PATIENT NOW HAS CONTROLLED MOVEMENT OF HER LEFT EXTREMETIES AND HAS NO DRIFT WITH HER LEFT ARM OR LEFT LEG. NIH SCORE NOW 13 AND BEAU LOCK FROM EDUCATION PRESENT IN THE ROOM HELPING WITH EXAM.
--- NOTE | 2022-03-16 17:05 | NUR ---
THIS RN PERFORMED PATIENT BEDSIDE SWALLOW EVAL AND PATIENT NOT EVEN ABLE TO SWOLLOW ONE TEASPOON OF WATER WITH OUT COUGHING AND CHOKING. DR. MONTALVO WAS CALLED AND HE WILL CHANGE ALL PATIENT'S MEDS TO IV. LAB HAS DRWAN BLOOD FOR A CROSSMATCH AND AWITING THIS TO BE DONE TO GIVE A TRANSFUSION. HAS BEE IN TWICE SINCE THE EVENT OT EVALUATE THE PATIENT AND HAS ALSO BEEN IN TO SEE THE PATIENT AND TALK WITH HER. HAS BEEN CONTACTING THE PATIENT'S DAUGHTERS. THIS RN REMAINS IN THE ROOM WITH THE PATIENT AT THISTIME. PATIENT HAS JUST USED THE BED RODRIGUEZ TO VOID AND HAS HAD A LITTLE MORE LIQUIDY RUST COLORED STOOL. CALL LIGHT IN REACH AND BED IN THE LOW POSITION.
--- NOTE | 2022-03-16 17:39 | PATH ---
[facility] [address], [place] [address] Signed SPECIMEN(S): A STOMACH BIOPSY SPECIMEN SOURCE: A. STOMACH BIOPSY CLINICAL HISTORY: Pre: GI bleed. Post: Multiple polyps of stomach FINAL PATHOLOGIC DIAGNOSIS: Stomach biopsy: - Benign fundic gland polyps (three fragments). JVR:[id number] MICROSCOPIC EXAMINATION: Histologic sections of all submitted blocks are examined by light microscopy. These findings, together with the gross examination, support the pathologic diagnosis. GROSS DESCRIPTION: The specimen, labeled "PS, per the requisition, stomach biopsy," is received in formalin and consists of three vora soft tissue fragments that measure 0.3 cm in greatest dimension. The specimen is entirely submitted in cassette (A1). CA (under the direct supervision of a pathologist) The Gross Description was prepared using a voice recognition system. The report was reviewed for accuracy; however, sound-alike word errors, addition and/or deletions may occur. If there is any question about this report, please contact Client Services. PERFORMING LABORATORY: The technical component was performed by [facility], [address] [place] [id number] (CLIA# [id number]). Professional interpretation was performed by [facility], [address] [place] [id number] (CLIA#: [id number]). Diagnostician: Charles Todd MD Pathologist Electronically Signed 03/16/2022 PATIENT NAME: JANETH HOFFMAN PATHOLOGY DATE OF : 33 REPORT #: [id number] PHYSICIAN: SHATNANU MENA PCP: KAMAR ROMERO DO REPORT IS CONFIDENTIAL AND NOT TO BE RELEASED WITHOUT AUTHORIZATION
--- NOTE | 2022-03-16 18:11 | NUR ---
PATIENT ABLE TO PUSH CALL LIGHT, REQUESTED TO GET UP TO VOID. PATIENT WAS A 2 MAX ASSIST TO THE COMMODE, 3PA FROM COMMODE TO BED.
--- NOTE | 2022-03-16 18:45 | NUR ---
PATIENT REMAINS SITTING UP WITH HOB >30 DEGREES. PATIENT ABLE TO PUSH CALL LIGHT AND IS ORIENTED. PATIENT HAS NO CARE NEEDS AT THIS TIME. CALL LIGHT IN REACH.
--- NOTE | 2022-03-16 19:26 | NUR ---
IN TO ANSWER CALL LIGHT. PT REPORTS ACCIDENTALLY HITTING CALL LIGHT. PT SITTING UP IN BED. PT REPORTS NO NEEDS AT THIS TIME. DAUGHTER IN ROOM. DAUGHTER REPORTS NO NEEDS AT THIS TIME. CALL LIGHT IN REACH.
--- NOTE | 2022-03-16 19:29 | NUR ---
received report from offgoing shift. Pt resting in room quietly, breathing even and unlabored. Call light in reach, no complaint of pain at this time.
--- NOTE | 2022-03-16 19:41 | NUR ---
THIS RN AND BEAU HAWLEY IN TO RECHECK PATIENT'S B/P AND VS AND SAY GOOD NIGHT FOR THE EVENING. CALL LIGHT IS IN REACH AND PATIENT'S DAUGHTER IS AT BEDSIDE.
--- NOTE | 2022-03-16 20:23 | NUR ---
Spoke with Dr. Serna on telephone concerning placing pt on Telemetry, confirmed via readback that MD does not want Pt on telemetry because it is "intended to search for AFIB" which this Pt has already been diagnosed with. also clarified via readback that pt is to receive 2 units of PRBC.
--- NOTE | 2022-03-16 22:13 | NUR ---
in pt room for rounding. Pt resting peacefully, breathing even and unlabored, no signs of discomfort or pain. Pt call light in reach
--- NOTE | 2022-03-16 23:36 | NUR ---
CALL LIGHT ANSWERED. PT INCONTINENT OF LARGE AMOUNT OF RED LIQUID PER RECTUM. ANIKA CARE DONE BY THIS RN WITH PICKLE CUTTER RN ASSIST. CLEAN BRIEF PLACED. PT DENIES FEELING DIZZY OR LIGHTHEADED. VS WNL. BLOOD INFUSING PER ORDERL. NO FURTHER NEEDS AT THIS TIME. BEAU CHARLES AT BEDSIDE.
--- NOTE | 2022-03-17 00:01 | NUR ---
in pt room for rounding. Pt resting comfortably. Pt has had anni red blood in bowels. MD notified, no new orders, continuing to monitor, call light in reach, no complaint of pain
--- NOTE | 2022-03-17 00:10 | NUR ---
CALL LIGHT ANSWERED. ASSISTED PT TO BEDPAN TO VOID. STAFF ASSIST WITH ANIKA CARE. 2PA TO REPOSITION IN BED. PT ABLE TO ASSIST WITH CARES AND FOLLOW DIRECTIONS. PT REPORTS SHE IS COMFORTABLE. BLOOD INFUSING WNL. NO FURTHER NEEDS.
--- NOTE | 2022-03-17 00:54 | NUR ---
PT ASSISTED TO BEDPAN TO VOID AND PASS SMALL AMOUNT CLOTTED BLOOD PER RECTUM. STAFF ASSIST WITH ANIKA CARE. ANIKA AREA RED, BARRIER CREAM APPLIED. PT REOPOSITIONED WITH PILLOWS. NO FURTHER NEEDS.
--- NOTE | 2022-03-17 01:52 | NUR ---
in pt room for rounding. Pt has had multiple bloody bowels with anni red blood, pooling in bed. Pt VS fluctuating between Sys BP 143-191, HR 88-107, lungs sounding coarse crackles. Pt appears to be agitated and restless, is toileting frequently (2-3 times an hour). MD notified, continue to monitor, call light in reach, no complaints of pain.
--- NOTE | 2022-03-17 02:12 | NUR ---
PT ASSISTED TO BEDPAN TO VOID AND HAVE MEDIUM AMOUNT OF MIXED LIQUID BLOOD AND CLOTTED BLOOD PER RECTUM. NO STOOL NOTED. PREI CARE DONE. BARRIER CREAM APPLIED. PT REPOSITIONED. BEFORE LEAVING THE ROOM PT NEEDING TO VOID. PT VOID LARGE AMOUNT OF UNMEASURED URINE. ANIKA CARE DONE. PT REPOSITIONED WITH 2PA UP IN BED. NO FURTHER NEEDS.
--- NOTE | 2022-03-17 05:43 | NUR ---
in pt room for rounding, pt still frequently voiding, pt call light in reach, no complaint of pain.
--- NOTE | 2022-03-17 06:23 | NUR ---
CALL LIGHT ANSWERED. PT ASSISTED TO USE BEDPAN TO VOID AND PASS SMALL AMOUNT OF RED CHUNKS. ANIKA CARE DONE. WARM BLANKETS PROVIDED. BEFORE LEAVING ROOM PT REQUESTING TO USE BEDPAN AGAIN TO VOID 100 ML CLEAR YELLOW URINE. STAFF ASSIST WITH ANIKA CARE. WARM BLANKET PROVIDED. PT ABLE TO REPOSITION SELF IN BED. NO FURTHER NEEDS. CALL LIGHT IN REACH.
--- NOTE | 2022-03-17 06:44 | NUR ---
in pt room for rounding. Pt still having multiple voids an hour, producing good (15-300 mL, clear yellow) urine frequently (2-3x/hour) pt is compliant with bedpan, helps by raising hips. Pt call light in reach, no complaint of pain
--- NOTE | 2022-03-17 07:00 | NUR ---
REPORT RECEIVED FROM BEAU LANDAVERDE AND BEAU CHARLES. RESTAURANT FLOOR MANAGER IN ROOM ASSISTING PT WITH TOILETING. NO NEEDS FROM THIS RN AT THIS TIME.
--- NOTE | 2022-03-17 07:05 | NUR ---
2 PA. CHANGED BED LINEN. PATIENT JUST URINATED THIS TIME. CHANGED GOWN. BED ALARM ON FOR SAFETY.
--- NOTE | 2022-03-17 07:29 | NUR ---
THIS RN AND BEAU RODRIGUEZ HAVE RECEIVED SHIFT REPORT FROM BEAU LANDAVERDE AND BEAU CHARLES. BEAU LOVE ASSISTING BEAU CHARLES AND BEAU HAWLEY IN PLACING A DUNHAM CATH AT THIS TIME.
--- NOTE | 2022-03-17 07:43 | NUR ---
PLACED DUNHAM CATHETER FOR RETENTION. PLACED WO DIFFICULTY AND IMMEDIETELY RETURNED LARGE AMOUNT LIGHT YELLOW CLEAR URINE. APPEARS TO BE APPROX 800ML. ASSISTED BY BEAU CHARLES AND BEAU BERNAL. PT TOLERATED WELL.
--- NOTE | 2022-03-17 09:03 | NUR ---
IN ROOM TO ADMINISTER IV MEDICATION. PT LAYING IN BED WITH EYES CLOSED. PT AWAKENS WHEN ADDRESSED AND WITH LIGHT TOUCH. LR AT A RATE OF 75 RUNNING IN RIGHT FOREARM. LEFT AC IV FLUSHED AND SL. PT DENIES PAIN AT THIS TIME. ASSESSMENT COMPLETE. BEAU KIDD IN ROOM. RUL LUNG SOUNDS CRACKLES. BILATERAL LOWER LOBES SOUND DIMINISHED. HEART RATE IRREGULAR WHEN AUSCULTATING. PUPILS SLUGGISH IN RESPONSE TO LIGHT. NO OTHER NEEDS AT THIS TIME. PT LAYING ON LEFT SIDE WITH EYES CLOSED. CALL LIGHT IN REACH.
--- NOTE | 2022-03-17 10:45 | NUR ---
IN TO ROUND ON PT. PT LAYING ON RIGHT SIDE WITH EYES CLOSED. RR EVEN. NO NEEDS IDENTIFIED AT THIS TIME. CALL LIGHT IN REACH.
--- NOTE | 2022-03-17 11:20 | NUR ---
THIS RN RETURNED PHONE CALL TO KENDRA PATIENT'S SON-IN-LAW WHO IS A PHOTO MACHINE OPERATOR. KENDRA WAS UPDATED AND PATIENT'S PROGRESS SINCE THE STROKE HAPPENED YESTERDAY. KENDRA REQUESTED A CALL FROM WELL AND THIS RN INFORMED KENDRASalome DIAZ GIVE HIS NUBER TO . DR. OMNTALVO HAS THE NUMBER AND WILL CALL THE SON-IN-LAW BACK.
--- NOTE | 2022-03-17 11:53 | NUR ---
IN TO DC LR AND ADMINISTER LR WITH 20ML POTASSIUM, SEE MAR. PT LAYING ON LEFT SIDE WITH EYES CLOSED. PT AWAKENS WHEN ADDRESSED WITH LIGHT TOUCH ON ARM. PT ROLLS TO RIGHT SIDE AND CLOSES EYES. NO BLOODY STOOL NOTED AT THIS TIME. PTs O2 SATS AT 95% RR EVEN. NO OTHER NEEDS AT THIS TIME. CALL LIGHT IN REACH.
--- NOTE | 2022-03-17 13:23 | NUR ---
PATIENT'S LUNCH INSULIN HELD SHE IS NPO AND GETTING NO NUTRITION CURRENTLY.
--- NOTE | 2022-03-17 13:30 | NUR ---
IN TO ROUND ON PT. SCUBA DIVING TEACHER AND CASE MANAGEMENT IN THE ROOM. PT LAYING IN BED WITH EYES CLOSED. THIS RN AND CASE MANAGEMENT BOOSTED PT UP IN BED. BLANKETS PLACED PER PT REQUEST. NO OTHER NEEDS AT THIS TIME. CALL LIGHT IN REACH.
--- NOTE | 2022-03-17 14:15 | NUR ---
Spoke with Pat, she states she feels ok. Able to move l arm. Facial droop remains. She denies needs. Per Dr. Serna he is awaiting results.
--- NOTE | 2022-03-17 14:43 | NUR ---
PATIENT REMAINS DOWN IN RADIOLOGY FOR HER TAGGED BLOOD CELL STUDY.
--- NOTE | 2022-03-17 15:04 | NUR ---
PT STILL WITH IMAGING. UNABLE TO ADMINISTER IV MAGNESIUM AND LOPRESSOR AT THIS TIME. DAUGHTER SITTING ON COUCH IN ROOM. DAUGHTER REPORTS NO NEEDS AT THIS TIME AND ALSO REPORTS HER "NIECE WILL BE IN THIS EVENING."
--- NOTE | 2022-03-17 15:14 | NUR ---
THIS RN WENT AND ASKED IF WE ARE GOING TO MAKE ANY ADJUSTMENTS TO PATIENT'S INSULIN OR SCHEDULE AND HE INFORMED THIS RN TO JUST CONTINUE WITH THE SCHEDULE ORDERED. THIS RN VERBALIZED UNDERSTANDING.
--- NOTE | 2022-03-17 15:37 | NUR ---
PATIENT BACK TO ROOM, RADIOLOGY TEST IS COMPLETE. PRIMARY NURSE IS AWARE.
--- NOTE | 2022-03-17 15:42 | NUR ---
PT BROUGHT BACK TO ROOM FROM IMAGING. IN ROOM TO ADMINISTER MEDICATION. PT LAYING IN BED WITH EYES OPEN AND RESPONDS WHEN ASKED QUESTIONS. IV IN LEFT AC FLUSHED AND LEAKING WAS NOTED. NICHOLE RN IN ROOM TO ASSESS IV SITE. IV IN LEFT AC REMOVED DUE TO LEAKING. ASSESSMENT COMPLETE. PT IS ABLE TO MOVE EYES PAST MIDLINE TO LOOK TO THE LEFT. PUPILS REACTIVE TO LIGHT. POOL HAND IN LEFT HAND IMPROVED. PTs LUNG SOUNDS CRACKLES IN RUL. DIMINISHED IN RLL AND LLL. HEART RYTHEM IRREGULAR WHEN AUSCULTATING. PT A&O TO PERSON, PLACE AND YEAR. GRANDDAUGHTER IN ROOM. PT LAYING IN BED WITH EYES OPEN. IV FLUIDS RUNNING. CALL LIGHT IN REACH. NO OTHER NEEDS AT THIS TIME.
--- NOTE | 2022-03-17 17:20 | NUR ---
IN ROOM TO ADMINISTER INSULIN, SEE MAR. PT LAYING IN BED WITH GRANDDAUGHTER AT BEDSIDE. PT TOLERATES SUB-Q INJECTION WELL. DR. OCHOA IN ROOM TO TALK WITH PT AND GRANDDAUGHTER. NO OTHER NEEDS AT THIS TIME. CALL LIGHT IN REACH.
--- NOTE | 2022-03-17 17:40 | OR ---
[facility] [address], [place] [address] Signed DATE OF OPERATION: 03/13/2022 SURGEON: Jay Ochoa MD PREOPERATIVE DIAGNOSIS: Lower GI bleeding. POSTOPERATIVE DIAGNOSES: 1. Diverticulosis without discrete bleeding site. 2. Multiple polyps (resected only two). PROCEDURE: Total colonoscopy to cecum with cold morcellation polypectomy x2. ANESTHESIA: Intravenous sedation; propofol infusion; Amy Holden CRNA. INDICATION: This relatively infirm 87-year-old white woman was admitted to the hospital on 03/12/2022 with blood per rectum and significant anemia. She has undergone transfusion therapy. She had bright blood per rectum as well as dark blood per rectum. She underwent upper endoscopy yesterday which showed multiple gastric polyps, none of which were bleeding and no other source that would account for anemia or blood loss. On that basis, a bowel prep was undertaken and she is now to undergo colonoscopy. She understands, as does her daughter, the risk of bleeding, infection, and perforation related to colonoscopy and wished to proceed. FINDINGS: The prep was reasonably good considering GI bleeding. She still had some residual dark blood within the colon and extended up to the cecum itself. The ileocecal valve was identified but despite multiple and repeated efforts intubation, the ileum could not be undertaken. Notably, she did have a number of polyps (10 at minimum) only two of which were resected. The other polyps were slightly larger, not accounting for her bleeding, but in hopes of avoiding additional bleeding by additional polypectomy the other polyps were left unresected at this time. She did have diverticulosis extending throughout the colon none of which appeared to be actively bleeding. DESCRIPTION OF PROCEDURE: The patient was brought to the endoscopy suite and placed in left lateral Electronically Signed By: JAY OCHOA MD 03/17/22 2092 PATIENT NAME: AJNETH HOFFMAN OPERATIVE REPORT DATE OF : 33 REPORT #: [id number] PHYSICIAN: JAY OCHOA MD PCP: ALVIN ROMERO DO REPORT IS CONFIDENTIAL AND NOT TO BE RELEASED WITHOUT AUTHORIZATION [facility] [address], [place] [address] Signed decubitus position, given intravenous sedation with propofol infusional technique. Digital rectal examination showed no palpable mass. An Olympus video colonoscope was passed in the rectum and manipulated throughout the colon ultimately intubating the cecum itself. There was old blood within the colon-- it was not completely clear by any means. Irrigation was undertaken throughout. There were no clots. The ileocecal valve was easily identified. There were small adenomatous appearing polyps of the cecum note-- nonbleeding. There was no sign of actual neoplasm otherwise. Ileocecal valve was identified and preserved showing no sign of blood coming from the ileum. Various attempts were made to intubate the ileum, but it was unsuccessful despite abdominal wall stabilization and other maneuvers. The scope was then withdrawn from that point. Examination throughout confirmed several polyps of the right colon. Further withdrawal of the transverse and left colon confirm were diverticula. There were two polyps of the colon which were excised with cold morcellation technique noted in the record as to location. Retroflexed view of the rectum showed no abnormalities. Scope was removed and the patient was taken to the recovery room in good condition. CONCLUSION DIAGNOSIS: No sign of active GI bleeding; diverticulosis without obvious diverticular bleeding site. Multiple polyps, most of which were left in situ, anticipating colonoscopy at a future date when no longer GI bleeding. Jay Ochoa MD JM/MODL /[id number] cc: MD Alvin Paul DO Copies: GALLO WALLACE MD Electronically Signed By: JAY OCHOA MD 03/17/22 1740 PATIENT NAME: JANETH HOFFMAN OPERATIVE REPORT DATE OF : 33 REPORT #: [id number] PHYSICIAN: JAY OCHOA MD PCP: ALVIN ROMERO DO REPORT IS CONFIDENTIAL AND NOT TO BE RELEASED WITHOUT AUTHORIZATION [facility] [address] [place] [id number] Signed ALVIN ROMERO DO ~ Electronically Signed By: JAY OCHOA MD 03/17/22 1740 PATIENT NAME: JANETH HOFFMAN OPERATIVE REPORT DATE OF : 33 REPORT #: [id number] PHYSICIAN: JAY OCHOA MD PCP: ALVIN ROMERO DO REPORT IS CONFIDENTIAL AND NOT TO BE RELEASED WITHOUT AUTHORIZATION
--- NOTE | 2022-03-17 17:40 | OR ---
[facility] [address] [place] [address], [place] [address] Signed DATE OF OPERATION: SURGEON: Jay Ochoa MD PREOPERATIVE DIAGNOSIS: Blood per rectum, possible low-grade hematemesis and anemia. 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 PROCEDURE: Esophagogastroduodenoscopy with biopsy. ANESTHESIA: Intravenous sedation, propofol infusion; Amy Holden CRNA. INDICATION: 87-year-old white woman was admitted by Dr. Lu at about midnight with symptoms of feeling weak and found to have a hematocrit in the low 20s. She is chronically anticoagulated with Coumadin for atrial fibrillation. She underwent 1 unit blood transfusion. Her hematocrit currently is 28. She has had no anni hematemesis but has had some bright blood per rectum. She is admitted to undergo upper endoscopy at this time to better characterize the possibility of upper GI bleeding. If this is normal, then consideration will be made for bowel prep and colonoscopy. The risks of bleeding, infection, and perforation related to upper endoscopy were reviewed. She understands as does her daughter and they wished to proceed. FINDINGS: There is no evidence of blood in the esophagus, stomach, or duodenum. There was no sign of lesion to account for anemia. She did have a considerable number of gastric polyps, most likely fundic gland polyps. Director Of Web Marketing polyps were biopsied. CLOtest was found to be negative at 20 minutes post procedure. PROCEDURE IN DETAIL: The patient was brought to the endoscopy suite and placed in lateral decubitus position given intravenous sedation by the feather renovator with propofol infusional technique. A bite block was placed. An Olympus video upper endoscope was passed in the hypopharynx. The vocal cords were normal overall. The scope was advanced to the esophagus, throughout its length it was normal. Passage to the stomach revealed normal rugal folds but innumerable gastric polyps most likely fundic gland polyps. Antrum was free of such polyps generally. The pylorus was normal. Scope was passed through into the Electronically Signed By: JAY OCHOA MD 03/17/22 1740 PATIENT NAME: JANETH HOFFMAN OPERATIVE REPORT DATE OF : 33 REPORT #: [id number] PHYSICIAN: JAY OCHOA MD PCP: KAMAR ROMERO DO REPORT IS CONFIDENTIAL AND NOT TO BE RELEASED WITHOUT AUTHORIZATION [facility] [address] [place] [id number] Signed normal-appearing duodenum. The scope was withdrawn and biopsies taken of a civil rights representative gastric polyp as well as for CLOtest biopsy. Retroflexed view was undertaken showing no sign of GE junction bleeding or hemorrhage or Jeanette-Jama tear. The scope was withdrawn to the distal esophagus which was also normal. Further withdrawal showed no other abnormalities. Scope was removed. The patient was taken to the recovery room in good condition. CONCLUDING DIAGNOSIS: Benign-appearing gastric polyps. No evidence of bleeding or cause for anemia. PLAN: We will anticipate a bowel prep and subsequent colonoscopy likely tomorrow. MD SHANKAR Matthew/CARLEY /[id number] cc: DO Chelsey Leroy MD Copies: KAMAR ROMERO CYNTHIA MD ~ Electronically Signed By: JAY OCHOA MD 03/17/22 1740 PATIENT NAME: JANETH HOFFMAN OPERATIVE REPORT DATE OF : 33 REPORT #: [id number] PHYSICIAN: JAY OCHOA MD PCP: KAMAR ROMERO DO REPORT IS CONFIDENTIAL AND NOT TO BE RELEASED WITHOUT AUTHORIZATION
--- NOTE | 2022-03-17 17:40 | CONS ---
[facility] [address], [place] [address] Signed DATE OF CONSULTATION: 03/12/2022 REQUESTING PHYSICIAN: Dr. Lu. PROBLEM: Blood per rectum, possible hematemesis, chronically anticoagulated for atrial fibrillation. HISTORY OF PRESENT ILLNESS: This very elderly 87-year-old white woman is accompanied by her daughter and is in the intensive care unit at this time. She was admitted by Dr. Lu approximately midnight with about 24 hours of bloody stools in the preceding evening. She was noted to be hypotensive en route from EMS service transport. She was given TXA as she is on Coumadin for chronic atrial fibrillation. Her INR is now normal. She was found to have a hemoglobin and hematocrit that was low and was given 1 unit of packed red cells transfusion. Her hematocrit is now 30. She has had some bright red blood per rectum. She denies any dysphagia or abdominal pain particularly. She has not had GI bleeding in the past. She is chronically anticoagulated with Coumadin as described for atrial fibrillation. MEDICATIONS: Her current medications include glipizide, metoprolol, warfarin, atorvastatin, omeprazole, vitamin B12, potassium chloride, vitamin D3, cinnamon bark, metformin, torsemide and digoxin. LABORATORY DATA: Her lab studies show approximately at midnight hematocrit of 28.1 with a white count of 16.5. She has been hemodynamically stable under observation in the intensive care unit. REVIEW OF SYSTEMS: She denies any shortness of breath or chest pain. Denies dysphagia. Having no abdominal pain. SOCIAL HISTORY: She is accompanied by her daughter who looks after her. PHYSICAL EXAMINATION: GENERAL: Elderly white woman who appears to be reasonably alert and oriented. She may Electronically Signed By: JAY OCHOA MD 03/17/22 1740 PATIENT NAME: JANETH HOFFMAN CONSULTATION DATE OF : 33 REPORT #: [id number] PHYSICIAN: JAY OCHOA MD PCP: KAMAR ROMERO DO REPORT IS CONFIDENTIAL AND NOT TO BE RELEASED WITHOUT AUTHORIZATION [facility] [address], [place] [address] Signed have some low-grade dementia. VITAL SIGNS: Show currently a pulse rate of 122 with atrial fibrillation rhythm. Respirations 20, blood pressure 116/59. NECK: Normal. Trachea is midline. She has no hoarseness. CHEST: Clear. HEART: Irregularly irregular. ABDOMEN: Obese, but soft, easily palpated. There is no ascites, tenderness or mass. EXTREMITIES: Show no clubbing, cyanosis, or edema. CURRENT LABORATORY STUDIES: Show white count of 15.8, hematocrit 32.7, previously 28.1, platelet count 247,000. ASSESSMENT: The patient has GI bleeding of some source. She has had no GI bleeding in the past. She has been anticoagulated for atrial fibrillation, which is now corrected. Her INR is currently 1.10. Previously, it was 2.23 prior to reversal. I would recommend upper endoscopy to better characterize the bleeding problem and if negative, consideration for bowel prep and colonoscopy to follow. The risks of bleeding, infection, and perforation were reviewed with the patient and her daughter. They understand and wished to proceed. We will plan to do this today. Jay Ochoa MD JM/MODL /[id number] cc: Gallo Lu MD Copies: GALLO LU MD ~ Electronically Signed By: JAY OCHOA MD 03/17/22 1740 PATIENT NAME: JANETH HOFFMAN CONSULTATION DATE OF : 33 REPORT #: [id number] PHYSICIAN: JAY OCHOA MD PCP: KAMAR ROMERO DO REPORT IS CONFIDENTIAL AND NOT TO BE RELEASED WITHOUT AUTHORIZATION
--- NOTE | 2022-03-17 17:41 | NUR ---
ORDERS RECEIVED FROM DR. OCHOA. ICE CHIPS FOR COMFORT. PT REQUESTING ICE CHIPS. ICE CHIPS PROVIDED. GRANDDAUGHTER IN ROOM ASSISTING PT WITH ICE CHIPS. NO OTHER NEEDS AT THIS TIME. CALL LIGHT IN REACH.
--- NOTE | 2022-03-17 17:45 | NUR ---
THIS RN TALKED WITH BEAU KIDD ABOUT ICE CHIP. BEAU KIDD SAID "IF PT STARTS COUGHING DO NOT GIVE ANY MORE ICE CHIPS." THIS RN TOLD GRANDDAUGHTER. GRANDDAUGHTER VERBALIZES UNDERSTANDING.
--- NOTE | 2022-03-17 18:10 | NUR ---
IN TO ADMINSTER IV MEDICATION, SEE MAR. KIDD, RN IN ROOM TO TALK TO GRANDDAUGHTER ABOUT ICE CHIPS. GRANDDAUGHTER STATES "SHE DID WELL, JUST DROOLING A LITTLE." BEAU KIDD TALKED ABOUT HOW THE DROOLING IS NOT GOOD AND TO NO LONGER GIVE ICE CHIPS. GRANDDAUGHTER VERBALIZES UNDERSTANDING. PT LAYING IN BED ON LEFT SIDE WITH EYES CLOSED. GRANDDAUGHTER IN THE ROOM. NO OTHER NEEDS AT THIS TIME. CALL LIGHT IN REACH.
--- NOTE | 2022-03-17 18:26 | NUR ---
THIS NURSE IN TO REPEAT BEDSIDE SWALLOW. NECTAR THICK WATER WAS TRIED FIRST, PATIENT COUGHED AFTER SWALLOW. HONEY THICK WATER, WITH CHIN TUCK AND PATIENT SWALLOWED WITH NO COUGH. PATIENT NOTED TO HAVE SWALLOW DELAY, POCKETS TO THE LEFT SIDE. DR. MONTALVO UPDATED AND WANTS TO KEEP PATIENT NPO FOR PENDING TRANSFER.
--- NOTE | 2022-03-17 19:33 | NUR ---
Received report from offgoing shift. Pt resting in room, no signs of distress or discomfort. Pt breathing is even, unlabored. call light in reach.
--- NOTE | 2022-03-17 20:30 | NUR ---
in pt room for rounding, VS, assessment. Pt resting with even, unlabored breathing. Pt tolerating IV infusion well, no indications of pain, pt denies pain.
--- NOTE | 2022-03-17 21:07 | NUR ---
in pt room for medication adminsitration. Pt is resting with even, unlabored breathing, family at bedside. Pt has no complaints of pain, breathing is even, unlabored. Pt call light is in reach,
--- NOTE | 2022-03-17 22:55 | NUR ---
IN PT ROOM FOR ROUNDING. PT RESTING ON BACK, FAMILY AT BEDSIDE, BREATHING IS EVEN AND UNLABORED. PT HAS NO SIGNS OF DISCOMFORT, CALL LIGHT IN REACH
--- NOTE | 2022-03-17 23:50 | NUR ---
CALL LIGHT ANSWERED. PATIENT'S GRAND DAUGTHER CALLED TO HAVE THE PATIENT BOOST UP IN BED. RN SAIMA AND THIS CATTLE KILLER REPOSITIONED THE PATIENT TO HER RIGHT SIDE. DUNHAM CARE DONE. CHANGED DRAW SHEET AND WHITE CHUX.
--- NOTE | 2022-03-17 23:58 | NUR ---
CALL LIGHT ANSWERED. IV PUMP ALARMING. ISSUE RESOLVED. ASSISTED PT TO REPOSITION IN BED. DUNHAM CARE COMPLETE. ASSISTED WITH ORAL CARE. NO FURTHER NEEDS. FAMILY AT BEDSIDE.
--- NOTE | 2022-03-18 00:24 | NUR ---
IN PT ROOM FOR ROUNDING, PT RESTING WITH BREATHING EVEN AND UNLABORED. PT IV FLUIDS CHANGED. PT CALL LIGHT IS IN REACH, NO INDICATIONS OF PAIN OR DISCOMFORT
--- NOTE | 2022-03-18 01:43 | NUR ---
In pt room for rounding. pt resting, no indications of pain or discomfort. Pt call light in reach, Family at bedside.
--- NOTE | 2022-03-18 02:28 | NUR ---
IN PT ROOM FOR ADMINISTRATION OF MEDICATION. PT WAS RESTING, BREATHING EVEN AND UNLABORED, NO INDICATIONS OF PAIN OR DISTRESS. CALL LIGHT IN REACH.
--- NOTE | 2022-03-18 02:30 | NUR ---
IN PT ROOM FOR ROUNDING. PT RESTING, BREATHING EVEN AND UNLABORED, NO EVIDENCE OF PAIN OR DISCOMFORT. PT CALL LIGHT IN REACH.
--- NOTE | 2022-03-18 04:09 | NUR ---
IN PT ROOM FOR ROUNDING, PT RESTING WITH BREATHING EASY, UNLABORED, EVEN. PT CALL LIGHT IN REACH, NO INDICATIONS OF PAIN OR DISCOMFORT.
--- NOTE | 2022-03-18 05:50 | NUR ---
IN PT ROOM FOR ROUNDING. PT RESTING, BREATHING IS EVEN, UNLABORED, NO SIGNS OF DISCOMFORT OR PAIN. PT CALL LIGHT IN REACH.
--- NOTE | 2022-03-18 06:13 | NUR ---
IN PT ROOM FOR MED ADMINISTRATION. PT BREATHING IS EVEN AND UNLABORED, CALL LIGHT IN REACH, NO COMPLAINT OF PAIN
--- NOTE | 2022-03-18 09:58 | NUR ---
ALERT, ORIENTED. ASSESSMENT COMPLETED. FAMILY MEMBER AT BEDSIDE. AM MEDICATION ADMINISTERED. IV FLUIDS INFUSING. DENIES NEEDS AT THIS TIME. REMAINS NPO AT THIS TIME. CALL LIGHT IN REACH, BED RAILS UP X2
--- NOTE | 2022-03-18 11:54 | NUR ---
GLUCOSE CHECKED AND RECORDED. PATIENT REPOSITIONED ONTO LEFT SIDE WITH PILLOWS SUPPORTING BACK. GRANDDAUGHTER IN ROOM, HAS QUESTIONS- RN IN ROOM AT THIS TIME. DUNHAM/ANIKA CARE PROVIDED. NO FRESH BLOOD NOTED ON WASHCLOTH. RN AWARE
--- NOTE | 2022-03-18 13:45 | NUR ---
Update from Dr. Serna, pt will transfer to a high level of care when accepted.
--- NOTE | 2022-03-18 14:19 | NUR ---
VITALS AND I&OS CHARTED. DUNHAM EMPTIED. PATIENT WAS INCONTINENT OF LRG STOOL LRG/ DRK BLOOD. RN AND DR MONTALVO AWARE. PATIENT CLEANED AND LINEN CHANGED. DUNHAM/ANIKA CARE PROVIDED. PATIENT REPOSITIONED ONTO RIGHT SIDE. HOB AT 35 DEGREES, SCDS IN PLACE. CALL LIGHT IN EASY REACH
--- NOTE | 2022-03-18 16:01 | NUR ---
Patient's niece in room at this time. States family is discussing taking patient AMA. Discussed she would like to take patient to [place] to [facility] and asks if hospital staff may arrange transport. States family is under the impression that Dr. Serna has cancelled bed request to [facility]. Discussed EMTALA and inability to transfer patient to [place], [place]. Verbalizes understanding. Informed transport may be arranged if family wishes to take patient home. States they do not want that. This nurse reviewed Dr. Serna's progress note from today and informed patient's niece that her bed request for [facility] has not been cancelled. Dr. Serna has put in his note discussion of inability to eat, possibility of feeding tube need and plan of care to follow what family would want. Informed her Dr. Kenyon is now hospitalist on and will see patient tomorrow. Verbalizes understanding, will stay in facility for time being and await discussion with Dr. Kenyon at this time.
--- NOTE | 2022-03-18 18:09 | NUR ---
WAKES AND FOLLOWS COMMANDS. SEE NEURO ASSESSMENT. REMAINS WITH FACIAL DROOP CONTINUING TO AWAIT BED IN [facility]. INCONTINENT OF 1 BLOODY BOWEL MOVEMENT TODAY. FAMILY REMAINS IN ROOM, CONSIDERED TAKING PATIENT AMA TODAY BUT WILL AWAIT DISCUSSION WITH DR. LOCKHART TOMORROW.
--- NOTE | 2022-03-18 19:42 | NUR ---
Patient sleeping in bed. Call light within reach. Bed alarm in place.
--- NOTE | 2022-03-18 22:10 | NUR ---
IN TO CLEAN UP PT 2PA, PT INCONT LIQUID BM, BOOSTED, VS CHECKED PER RN, RN INFORMED, BED ALARM RESUMED, NO FURTHER NEEDS AT THIS TIME
--- NOTE | 2022-03-19 01:13 | NUR ---
Patient sleeping in bed. Bed alarm in place. Call light within reach. Grand daughter at bedside.
--- NOTE | 2022-03-19 02:00 | NUR ---
IN TO CHECK BLOOD SUGAR, PT ALSO HAD BM, CLEANED UP, BED ALARM ACTIVE
--- NOTE | 2022-03-19 04:15 | NUR ---
Uneventful shift. Slow to respond. Slurred speech. Fully oriented. Granddaughter at bedside. Lung sounds dim in bases. On RA. General weakness noted, moreso in left extremities. Has remained in bed. Incont of bowel. Several loose, burgandy BM's on shift. Saline locked. Batista cath in place.
--- NOTE | 2022-03-19 07:03 | NUR ---
Report from BEAU Valentino. Patient resting in bed with eyes closed. Allowed to rest at this time. Respirations even and unlabored, on room air. O2 sats 100%.
--- NOTE | 2022-03-19 07:50 | NUR ---
PT RESTING IN BED. BS TAKEN. NO NEEDS. CALL LIGHT WITHIN REACH.
--- NOTE | 2022-03-19 08:25 | NUR ---
IV LEAKING. DC'D. NEW IV STARTED X1. ASSESSMENT COMPLETED. DENIES PAIN AND OTHER NEEDS AT THIS TIME. CALL LIGHT IN REACH, BED RAILS UP X2.
--- NOTE | 2022-03-19 09:17 | NUR ---
PT RESTING IN BED. VITALS AND IS AND OS COMPLETE. NO NEEDS. CALL LIGHT WITHIN REACH.
--- NOTE | 2022-03-19 09:57 | NUR ---
SLIDE FROM BED TO CHAIR TO RADIOLOGY FOR BARIUM SWALLOW STUDY.
--- NOTE | 2022-03-19 10:40 | NUR ---
VERIFIED DIET ORDER WITH DR. FERNANDO AFTER DISCUSSING WITH SPEECH THERAPY. VORB DR. FERNANDO/Tonja QUINTANILLA RN TO BEGIN 60 GM CARB, PUREED DIET WITH MODERATELY THICK LIQUIDS.
--- NOTE | 2022-03-19 12:02 | NUR ---
ROUNDED ON PATIENT. HEAD OF BED AT A 45 PATIENT REPOSITIONED TO SIT UP STRAIGHT WHILE RESTING. POSITIONED WITH PILLOWS. RESPONDS APPROPRIATLY TO VERBAL STIMULATION SLEEPS IF UNSTIMULATED.
--- NOTE | 2022-03-19 12:46 | NUR ---
PT LUNCH ARRIVED. RN AND THIS CNA2 REPOSITIONED PT IN BED. THIS CNA2 FED PT SMALL AMOUNTS OF FOOD. PT ONLY ATE ABOUT TWO SPPONFULLS OF MASHED POTATES AND PEACHES. SHE DID NOT WANT ANY MORE AFTER THAT BY SHAKING HER HEAD "NO". CLEANED PT UP AND KEPT HEAD OF BED ABOUT 40. CALL LIGHT IN REACH.
--- NOTE | 2022-03-19 14:04 | NUR ---
PT RESTING IN BED. VITALS AND IS AND OS COMPLETE. NO NEEDS. CALL LIGHT WITHIN REACH.
--- NOTE | 2022-03-19 14:33 | NUR ---
ROUNDED ON PATIENT SHE IS RESTING COMFORTABLLY. HEAD OF THE BED IS AT A 45 DEGREE ANGLE. PATIENT WAS PROVIDED A WET SPONGE. PATIENT RESPONDS APPROPRIATELY TO QUESTIONS. BED ALARM IS ACTIVE. DUNHAM CATH IN PLACE DUNHAM CARE PROVIDED IN THE AM WITH PRIMARY NURSE.
--- NOTE | 2022-03-19 15:59 | NUR ---
LED PTS' FLIGHT LINE MECHANIC TO HER RM. WILL FOLLOW NEEDED
--- NOTE | 2022-03-19 16:10 | NUR ---
PT USED CALL LIGHT APPROPRIATLY FOR READJUSTMENT. RN AND THIS CNA2 PULLED PT UP IN BED AND TURNED TO R SIDE W/PILLOW. PT IS RESTING W/CALL LIGHT IN REACH.
--- NOTE | 2022-03-19 16:12 | NUR ---
Uses call light to reposition in bed. 2 person assist to turn onto right side. Patient denies other needs.
--- NOTE | 2022-03-19 16:36 | NUR ---
Barium swallow study this AM. Diet changed to pureed diet with moderate thick liquids to be given by spoon. Patient is not tolerant of thickened liquids. Repeatedly requests to have ice chips and thin water. Educated multiple times today about stroke and difficulty swallowing, need for modified diet. IV remains SL.
--- NOTE | 2022-03-19 20:00 | NUR ---
Patient resting in bed. Family at bedside. Denies needs at this time. Call light within reach.
--- NOTE | 2022-03-19 20:15 | NUR ---
IN TO GET VS AND ACCU CHECK FOR RN, DUNHAM EMPTIED, PT DAUGHTER IN RM, NO FURTHER NEEDS AT THIS TIME
--- NOTE | 2022-03-19 21:30 | NUR ---
PT CALLED, FELT LIKE SHE HAD A BM, PT WAS DRY, REPOSITIONED TO THE RIGHT SIDE, NO FURTHER NEEDS AT THIS TIME
--- NOTE | 2022-03-19 22:14 | NUR ---
IN TO ASSIST PT WITH REPOSTIONING, 2PA WITH RN
--- NOTE | 2022-03-19 23:37 | NUR ---
PT CALLED FOR SMALL PILLOW FOR HER HEAD, PILLOWS POSITIONED, HOB POSITIONED, NO FURTHER NEEDS AT THIS TIME
--- NOTE | 2022-03-20 01:03 | NUR ---
Sleeping in bed. Family at bedside. Bed alarm in place.
--- NOTE | 2022-03-20 01:50 | NUR ---
IN TO GET VS, DUNHAM EMPTIED, ATTENDS CDI, PT RESTING ON RIGHT SIDE
--- NOTE | 2022-03-20 04:44 | NUR ---
Uneventful shift. Daughter remains at bedside. Lung sounds dim in bases. On RA. Does not remember that she had a stroke. Otherwise oriented. Speech is slurred. Able to move all extremities. L side extremities slightly weaker. Has remained in bed. Batista in place. Saline locked. Adequate I&O's. No bowels movements.
--- NOTE | 2022-03-20 07:30 | NUR ---
REPORT TAKEN FROM DRE. PATIENT RESTING COMFORTABLY. PATIENT WAS REPOSITIONED UP IN BED. BED ALARM IS ACTIVE. DAUGHTER ABILIO IN ROOM WITH PATIENT AND STATES SHE WAS TO TRAVEL WITH PATIENT WHEN SHE IS TRANSFERED.
--- NOTE | 2022-03-20 08:55 | NUR ---
dr gurrola in for assessment - aware of iv dc - may order picc line - if not dc to assisted care. dc planning / working with family to discuss placement to rehab
--- NOTE | 2022-03-20 08:55 | NUR ---
IV LOCATED RIGHT WRIST WAS INEFFECTIVE AND DC'D INTACT BY KATE YANEZ.
--- NOTE | 2022-03-20 09:08 | NUR ---
dr esquivel on speaker phone with dtg here and [facility]. iv r wrist dc intact after infilterate. discussion on risk vs benifit of coumadin and watchman procedure. hold both for now. pt repositioned to r side now by rn and student.
--- NOTE | 2022-03-20 10:05 | NUR ---
INTO PATIENT ROOM. PHONE CONFERENCE WITH PATIENT DAUGHTER KENDRA TEJADA AND DAUGHTER ABILIO AT THE BESIDE. AFTER FAMILY DISCUSSION IT HAS BEEN DECIDED THAT THE MAIN GOAL FOR THE PATIENT REHAB IS STROKE CARE AND ST. FAMILY WOULD LIKE PATIENT TO BE PLACED AT [facility]. PER MICHAEL IN ADMISSIONS AT [facility] BEDS ARE AVAILABLE. WILL SEND CHART AND UPDATE FAMILY SOON I HAVE AN UPDATE. DR. FERNANDO AND KATE RN NOTIFIED.
--- NOTE | 2022-03-20 11:37 | NUR ---
PT RESTING IN BED. BS TAKEN. NO NEEDS. CALL LIGHT WITHIN REACH.
--- NOTE | 2022-03-20 13:09 | NUR ---
report from du picc rn, now in place left arm - ok to use.
--- NOTE | 2022-03-20 13:15 | NUR ---
MIDLINE INSERTION NOTE 1211- DISCUSSED WITH DR. FERNANDO ABOUT THE PLAN OF CARE FOR THE PT AND PICC OR MIDLINE. AFTER DISCUSSING WITH DR. FERNANDO IT WAS AGREED UPON PLACING A MIDLINE. 1216- CALLED PT'S DAUGHTER MALLORY- WHO IS THE POA. DISCUSSED WITH HER ABOUT PROVIDING THE PT WITH A MIDLINE. DISCUSSED THE RISKS AND BENEFITS WITH HER. PT'S DAUGHTER STATES SHE IS A NURSE AND IS FAMILIAR WITH A MIDLINE. DISCUSSED REASONINGS WHY A MIDLINE WAS CHOSEN OVER A PICC LINE AND PT'S DAUGHTER AGREES WITH THIS. MALLORY AGREED TO HAVING A MIDLINE PLACED. 1222- DISCUSSED WITH PT ABOUT PLACING A MIDLINE. THE RISKS AND BENEFITS. PT IS AGREEABLE WITH RECEIVING A MIDLINE. 1231- PT'S LEFT ARM WAS EXAMINED. PT IS ABLE TO MOVE THIS ARM AND IS ABLE TO LAY IT OUT TO THE SIDE FOR MIDLINE PLACEMENT. THE CEPHALIC, BRACHIAL, AND BASILIC VEINS WERE ALL VISUALIZED. THE CEPHALIC WAS CHOSEN IT WAS LARGE ENOUGH TO FIT A 6 FR AND WAS LESS THAN 1 CM BELOW THE SURFACE. 1300- MIDLINE PLACED UNDER STERILE TECHNIQUE. VEIN RETURNED BRISK, DARK, NON PUSITILE BLOOD. THE GUIDEWIRE AND CATHETER ADVANCED EASILY UP THE VEIN. THE MIDLINE DRAWS BLOOD AND FLUSHES EASILY. PT'S DAUGHTER IN THE ROOM PROVIDED WITH PT EDUCATION REGARDING THE MIDLINE. REPORT GIVEN TO RAG CUTTING MACHINE TENDER.
--- NOTE | 2022-03-20 14:25 | NUR ---
PT RESTING IN BED. PT SAT UP TO A 45 DEGREES IN BED. PT HOLDS CUP AND SIPS ON THICKENED APPLE JUICE AND WATER. INTAKE IS VERY SMALL AMOUNT. PT REPOSITONED. PT FLOATED AND OFF BOTTOM ON BOTH SIDES LAYING IN SUPINE POSITION. PT LEGS FLOATED WELL. NO NEEDS. DAUGHTER IN ROOM. CALL LIGHT WITHIN REACH.
--- NOTE | 2022-03-20 14:34 | NUR ---
PT REPOSITIONED IN BED. MOVED UP BY THIS [employer]HA [employer] CANDELARIO. PT FLOATED W/PILLOWS ON EACH SIDE. PT STATED SHE WAS MORE COMFORTABLE. PT TOLERATED IT WELL AND FOLLOWED COMMANDS. FAMILY IN ROOM. NO OTHER REQUESTS AT THIS TIME W/CALL LIGHT IN REACH.
--- NOTE | 2022-03-20 15:23 | EKG ---
[facility] [address] [place] [address] Signed Atrial fibrillation Right bundle branch block Abnormal ECG When compared with ECG of 12-MAR-2022 01:04, Vent. rate has decreased BY 46 BPM QRS duration has increased Confirmed by Ada Fernando MD () on 03/20/2022 3:23:11 PM Electronically Signed By: ADA FERNANDO MD 03/20/22 1523 PATIENT NAME: JANETH HOFFMAN Electrocardiogram DATE OF : 33 PHYSICIAN: ADA FERNANDO MD REPORT #: [id number] REPORT IS CONFIDENTIAL AND NOT TO BE RELEASED WITHOUT AUTHORIZATION
--- NOTE | 2022-03-20 15:35 | NUR ---
PT RESTING IN BED. 2 CNAS IN ROOM (ONE BEING MYSELF). BEDBATH COMPLETE. HAIR CAP GIVEN TO PATIENT WELL. FULL LINEN CHANGE DONE. NEW BRIEF AND SUGEY WELL. CATHETER CARE DONE WELL. NO NEEDS AT THIS TIME. DAUGHTER IN ROOM. CALL LIGHT WITHIN REACH.
--- NOTE | 2022-03-20 17:34 | NUR ---
PT IN BED RESTING. VITALS AND IS AND OS TAKEN. RN NOTIFIED OF URINE OUTPUT AND THAT PT DID NOT EAT. I DID OFFER MILKSHAKE TO PT BUT PT DECLINED UPON BRINGING IT INTO PT ROOM. NO NEEDS CALL LIGHT WITHIN REACH.
--- NOTE | 2022-03-20 17:55 | NUR ---
HAND MODEL AT BEDSIDE ASSISNTING PT WITH FEEDING. PT ATE 2% OF MEAL. URINE OUTPUT 15MLS. PRIMARY NURSE NOTIFIED AND DR ORDERED NS AT 100ML/HR.
--- NOTE | 2022-03-20 20:08 | NUR ---
Patient resting in bed. Family at bedside. Call light within reach.
--- NOTE | 2022-03-21 01:12 | NUR ---
Patient sleeping in bed. Daughter at bedside. Call light within reach.
--- NOTE | 2022-03-21 04:19 | NUR ---
Uneventful shift. Daughter remains at bedside. No change in patient's mentation. Responds to questions appropriately. Follows commands. Oriented. Does not recall stroke event. Slurred speech. Slightly weaker left sided extremities. No complaints of pain. NS infusing at rate of 100. Batista patent, draining light yellow, clear urine. No stools on shift. Bowel sounds active. On RA. Lungs sounds dim in bases.
--- NOTE | 2022-03-21 07:54 | NUR ---
REPORT RECEIVED. PT LYING ON RIGHT SIDE. FAMILY AT BEDSIDE. NS INFUSING AT 100ML/HR.
--- NOTE | 2022-03-21 08:36 | NUR ---
Sherin swab collected and taken to the lab for processing. Patient is confused due to dementia and would not allow me to do both nares. I was able to swab the left side but not to the back of the nares.
--- NOTE | 2022-03-21 08:55 | NUR ---
PATIENT UP IN CHAIR FOR MEAL. DID NOT WANT FOOD, BUT DAUGHTER GAVE THE PATIENT PUREED PEARS FROM STORE. PT HAS NO OTHER NEEDS AT THIS TIME. CALL LIGHT WITHIN REACH.
--- NOTE | 2022-03-21 09:12 | NUR ---
IN PTS ROOM TO CHECK ON PT. VITALS AND IS AND OS COMPLETE. PTS DAUGHTER IN ROOM. PT DAUGHTER IN ROOM AND REAGAN DONOHUE FOR PT. I LET PTS DAUGHTER KNOW I WILL CHECK WITH HER RN AND WILL BRING IN IF OK. PTS DAUGHTER IS UPSET THAT PT IS NOT EATING OR DRINKING AND STATED "I AM JUST GOING TO COOK FOR HER BECAUSE SHE DOES NOT LIKE EATING THIS MUSH". NO NEEDS. CALL LIGHT WITHIN REACH.
--- NOTE | 2022-03-21 10:00 | NUR ---
ASSESSMENT COMPLETED AND PT ASSSITED WITH CAMPUS AMBASSADOR TO CHAIR FOR BREAKFAST. PT DID NOT EAT BREAKFAST. PT TRANSFERED WELL. ASSESSMENT COMPLETED AND AND PT IS AAOX4. LUNGS DIM. ABLE TO ANSWER QUESTIONS APPROPRIATLY BUT IS SLOW TO RESPOND. CALL LIGHT IN REACH. DAUGHTER GOING TO GO HOME TO TRY AND BRING PT FOOD SHE MIGHT LIKE
--- NOTE | 2022-03-21 12:37 | NUR ---
IN FOR INSULIN. PT WORKED WITH THERAPY AND IS NOW IN BED. BELLOWS CHARGER ASSEMBLER ASSISTING WITH FEEDING. PT HELPING FEED SELF TODAY. 2 UNTIS ADMINISTERED. PT DENIES FURTHER NEEDS.
--- NOTE | 2022-03-21 14:18 | NUR ---
PATIENT IN BED, VITALS AND I/O'S COMPLETED. PT HAS NO OTHER NEEDS AT THIS TIME. CALL LIGHT WITHIN REACH.
--- NOTE | 2022-03-21 14:33 | NUR ---
ROUNDED ON PT. PT LYING IN BED ON LEFT SIDE. DENIES PAIN OR NEEDS. METOPROLOL ADMINISTERED. CALL LIGHT IN REACH.
--- NOTE | 2022-03-21 16:20 | NUR ---
ROUNDED ON PT. PT LYING ON RIGHT SIDE. ASSESSMENT COMPLETED. NO CONCERNS. CALL LIGHT IN REACH. DENIES NEEDS.
--- NOTE | 2022-03-21 18:48 | NUR ---
ROUNDED ON PT. PT UP IN CHAIR. RR WQUAL AND NONLABORED. PT IS SLEEPING. FLUIDS INFUSING PER ORDER.
--- NOTE | 2022-03-21 19:53 | NUR ---
RECEIVED REPORT FROM OFFGOING SHIFT. PT RESTING IN ROOM, EATING A SMALL OMAOUNT OF PUDDING. PT FAMILY IS AT BEDSIDE, PT SHOWS NO SIGN OF PAIN OR DISCOMFORT, BREATHING IS EVEN AND UNLABORED, CALL LIGHT IN REACH.
--- NOTE | 2022-03-21 21:05 | NUR ---
IN PT ROOM FOR MEDICATION ADMINISTRATION, ASSESSMENT. PT RESTING, FAMILY AT BEDSIDE. PT BREATHING EVEN, UNLABORED, NO SIGNS OF PAIN OR DISCOMFORT. PT REQUESTED MEDICATION NO BE DELIVERED IN APPLESAUCE AGAIN. PT CALL LIGHT IN REACH
--- NOTE | 2022-03-21 22:39 | NUR ---
IN PT ROOM FOR ROUNDING. PT RESTING WITH BREATHING EVEN, UNLABORED. NO SIGNS OR COMPLAINT OF PAIN OR DISCOMFORT. PT CALL LIGHT IN REACH, FAMILY RESTING IN ROOM
--- NOTE | 2022-03-22 00:20 | NUR ---
IN PT ROOM FOR ROUNDING. PT RESTING ON HER SIDE, BREATHING EVEN AND UNLABORED, NO INDICATIONS OF PAIN OR DISCOMFORT. PT FAMILY AT BEDSIDE, CALL LIGHT IN REACH
--- NOTE | 2022-03-22 02:43 | NUR ---
IN PT ROOM FOR ROUNDING, VS, ASSESSMENT. PT SLEEPING WITH EVEN, UNLABORED BREATHING. PT WOKE UPON ASSESSMENT, NO COMPLAINT OF PAIN. PT REPOSITIONED, PROVIDED WITH A WARM BLANKET, CALL LIGHT IN REACH
--- NOTE | 2022-03-22 04:29 | NUR ---
IN PT ROOM FOR ROUNDING. PT RESTING COMFORTABLY WITH NO SIGNS OF DISCOMFORT OR PAIN. PT BREATHING EVEN AND UNLABORED, FAMILY AT BEDSIDE, CALL LIGHT IN REACH
--- NOTE | 2022-03-22 06:20 | NUR ---
IN PT ROOM FOR ROUNDING, MEDICATION ADMINISTRATION. PT RESTING EASY, NO INDICATIONS OF PAIN OR DISCOMFORT. PT BREATHING IS EVEN, UNLABORED. PT FAMILY AT BEDSIDE, CALL LIGHT IN REACH
--- NOTE | 2022-03-22 07:11 | NUR ---
Report from BEAU Modi, patient resting in bed by her self. Respirations even and unlabored. Allowed to rest. Call light in reach. Bed rails up X2.
--- NOTE | 2022-03-22 08:30 | NUR ---
PATIENT ASLEEP THIS MORNING, DAUGHTER IN ROOM. WHEN PATIENT IS MORE AWAKE THIS PRIMARY SPECIAL EDUCATION TEACHER WILL HELP WITH ACTIVITIES OF DAILY LIVING. NURSE ALISE WAS NOTIFIED OF THIS. CALL [facility] WITHIN REACH.
--- NOTE | 2022-03-22 10:53 | NUR ---
Family member in room. Patient lying in bed. Multiple attempts by staff to get her up in reclner this AM. States "no" when attempts made. PT states patient ambulated in room but wanted to return to bed. Patient does not speak when this nurse talks to her. Flat affect noted. No changes in neuros noted, continues to follow directions.
--- NOTE | 2022-03-22 10:55 | NUR ---
PATIENT IN BED AFTER MEAL. REFUSED TO GET UP OR EAT. VITALS AND I/O'S ARE COMPLETED. NURSE MAYGAN NOTIFIED. WILL APPROACH AGAIN BEFORE LUNCH TO GET UP TO CHAIR AND EAT. DAUGHTER IN ROOM, CALL LIGHT WITHIN REACH.
--- NOTE | 2022-03-22 12:03 | NUR ---
SITTING UP IN RECLINER. DAUGHTER IN ROOM. BOTH DENY NEEDS AT THIS TIME. CALL LIGHT IN REACH.
--- NOTE | 2022-03-22 12:33 | NUR ---
PATIENT SITTING UP IN RECLINER. DAUGHTER REQUESTS TO GIVE PATIENT SMALL AMOUNTS OF THIN WATER TO MOISTEN PATIENT'S LIPS. EDUCATED ON RISK OF ASPIRATION PNEUMONIA AND POSSIBILITY OF ASPIRATION WITH THINNED LIQUIDS. PATIENT AND DAUGHTER VERBALIZE UNDERSTANDING OF RISKS. DAUGHTER GIVES PATIENT SMALL DROPS OF WATER TO HER TONGUE USING A STRAW.
--- NOTE | 2022-03-22 14:41 | NUR ---
PATIENT IN BED SLEEPING, VITALS AND I/O'S COMPLETED. PT HAS NO OTHER NEEDS AT THIS TIME. CALL LIGHT WITHIN REACH.
--- NOTE | 2022-03-22 18:09 | NUR ---
PATIENT IN BED RESTING AFTER MEAL.VITALS AND I/O'S COMPLETED. DUNHAM DRAINED AND DOCUMENTED. PT HAS NO OTHER NEEDS AT THIS TIME. FAMILY IN ROOM. CALL LIGHT WITHIN REACH.
--- NOTE | 2022-03-22 18:40 | NUR ---
Patient tired today. Does not want to get up this AM to sit in recliner. Up in chair for lunch and dinner. Family remains in room with patient most of today. Patient denies pain today. Remains on IVF. Poor appetite. Family gave patient "drops" of thin water to moisten her mouth today. Patient and family educated on diet recommendations and risks of thin fluids, both verbalize understanding. No signs of aspiration today. Patient denies feeling down/depressed when asked. Flat affect today. Neuros remain unchanged.
--- NOTE | 2022-03-22 19:47 | NUR ---
REPORT RECEIVED FROM DAY SHIFT RN. PT LYING IN BED RESTING WITH EYES CLOSED. RESPIRATIONS EVEN. CALL LIGHT IN REACH.
--- NOTE | 2022-03-22 21:30 | NUR ---
EVENING ASSESSMENT COMPLETE. SCHEDULED MEDS ADMIN PER EMAR. HOB ELEVATED. MED GIVEN WITH BITES OF PUDDING. PT DENIES PAIN OR NAUSEA. LEFT SIDE FACIAL DROOP AND WEAKNESS NOTED. IVF INFUSING WNL. DUNHAM PATENT WITH QS YELLOW URINE. 2PA TO REPOSITION IN BED. FAMILY AT BEDSIDE. PT DENIES QUESTIONS OR CONCERNS. CALL LIGHT IN REACH.
--- NOTE | 2022-03-23 00:58 | NUR ---
PT RESTING ON LEFT SIDE IN BED WITH EYES CLOSED. RESPIRATIONS EVEN. FAMILY RESTING ON COUCH. CALL LIGHT IN REACH.
--- NOTE | 2022-03-23 02:30 | NUR ---
VS AND BLOOD SUGAR OBTAINED. BS WNL, SLIDING SCALE INSULIN HELD. SCHEDULED MEDS ADMIN. WARM BLANKET PROVIDED. PT REPORTS SHE IS RESTING COMFORTABLY. DAUGHTER IN ROOM. NO NEEDS AT THIS TIME.
--- NOTE | 2022-03-23 04:10 | NUR ---
PT RESTING IN BED WITH EYES CLOSED. RESPIRATIONS EVEN. CALL LIGHT IN REACH.
--- NOTE | 2022-03-23 06:05 | NUR ---
VS AND I&O OBTAINED. SCHEDULED MEDS ADMIN PER EMAR. MORNING LABS DRAWN FROM LEFT ARM MIDLINE PER PROTOCOL. NO FURTHER NEEDS AT THIS TIME. CALL LIGHT IN REACH.
--- NOTE | 2022-03-23 07:37 | NUR ---
PT IN CHAIR. BS TAKEN. RN NOTFIED. NO NEEDS. CALL LIGHT WITHIN REACH.
--- NOTE | 2022-03-23 08:16 | NUR ---
THIS RN IN ROOM TO SEE PATIENT AND HANG NEW IV BAG. PATIENT DENIES PAIN AND NAUSEA AND IS A=O X3. AM ASSESSEMENT COMPLETE. PATIENT SIGNING A MEDICAL RECORDS RELEASE FOR HER DAUGHTER WHO IS IN THE ROOM. PATIENT DENIES ANY CARE NEEDS AT THIS TIME AND IS AWAITING BREAKFAST. CALL LIGHT IN REACH. PATIENT NEEDED NO INSULIN FOR AM BLOOD SUGAR.
--- NOTE | 2022-03-23 08:32 | NUR ---
PER TEXT FROM [facility] PATIENT CHART WILL BE REVIEWED TODAY. NO BED AVAILABLE UNTIL WEDNESDAY. PATIENT DAUGHTER UPDATED AT THE BEDSIDE.
--- NOTE | 2022-03-23 09:45 | NUR ---
PT IN CHAIR. DAUGHTER PRESENT IN ROOM. VITALS AND IS AND OS COMPLETE. NO NEEDS. CALL LIGHT WITHIN REACH.
--- NOTE | 2022-03-23 10:15 | NUR ---
THIS RN IN TO ASSIST PATIENT BACK TO BED. 2PA PIVOT AND TURN TO THE BED. PATIENT TOLERATED THIS WELL. WARM BLANKET GIVEN. CALL LIGHT IN REACH. PATIENT'S DAUGHTER LEAVING FOR AWHILE. HOB AT 30 DEGREES FOR ASPIRATION PRECAUTIONS.
--- NOTE | 2022-03-23 11:32 | NUR ---
PATIENT RESTING QUIETLY IN SEMI-FOWLERS POSITION WITH HOB AT 30 DEGREES FOR ASPIRATION PRECAUTIONS, EYS CLOSED, RESPIRATIONS ARE REGULAR AND EVEN, SCD'S ON, AND CALL LIGHT IN REACH. PATIENT HAS NO NURSE CARE NEEDS AT THIS TIME.
--- NOTE | 2022-03-23 12:21 | NUR ---
PATIENT HAS A VERY POOR APPITITE SO INSULIN COVERAGE NOT GIVEN FOR BEING 2 POINTS HIGH. PATIENT'S DAUGHTER BACK AND WANTING TO TALK TO CASE MANAGEMENT ABOUT DISCHARGE SHE JUST CANCELLED HER FLIGHT TO TRY AND TAKE THE PATIENT TODAY. BEAU HARTMANN FROM INFORMED DAUGHTER WANTS TO TALK TO CM.
--- NOTE | 2022-03-23 12:32 | NUR ---
OB FROM RT HERE TO DO A COVID TEST FOR PATIENT PLACEMENT.
--- NOTE | 2022-03-23 12:40 | NUR ---
both nare swabbed for covid-19 without complication. sample taken to lab.
--- NOTE | 2022-03-23 13:07 | NUR ---
VERBAL ORDER FROM TO THIS RN TO DC DUNHAM NOW GIVEN. THIS RN REMOVED PATIENT'S DUNHAM AFTER DEFLATING THE BALLOON AND PATIENT TOLERATED THIS WELL. PREPARING FOR POSSIBLE DC OF PATIENT TO [facility] BY 1400. CALL LIGHT IN REACH. PATIENT HAS NO OTHER CARE NEEDS AT THIS TIME.
--- NOTE | 2022-03-23 13:25 | NUR ---
THIS RN IN TO ASK PATIENT'S DAUGHTER IF PATIENT HAS HAD THE LATEST BIVALENT COVID VACCINE. DAUGHTER SAYS NO, BUT KENDRA THE SON WAS CALLED BY THE DAUGHTER WHILE THIS RN WAS IN THE ROOM AND KENDRA CONFIRMED THE PATIENT HAS NOT HAD THE NEW BIVALENT VACCINE. THIS RN WILL GIVE THIS INFOR TO SHAHBAZ PAVON CM.
--- NOTE | 2022-03-23 13:53 | NUR ---
PATIENT'S VS STABLE. GAVE VERBAL ORDER THAT MIDLINE POWERGLIDE TO STAY IN PLACE TO THE FACILITY IN CASE THEY NEED TO DRAW LABS OR HAVE IV ACCESS FOR ANY REASON PATIENT IS A HARD STICK. MIDLINE FLUSHED AND NS LOCKED AND ALCOHOL CAPPED FOR TRANSPORT AND STOCKING NET PLACED OF IT TO KEEP IT SECURE. VS STABEL PATIENT DRESSED BY VISCOSITY INSPECTOR'S AND TAKEN TO DAUGHTER'S PRIVATE CARE AND PATIENT BEING TRANSPRTED TO [facility]. THIS RN CALLED NURSE TO NURSE REPORT TO BEAU MURILLO AT [facility]. DC PACKED WITH INSTRUCTIONS AND ORDERS SENT WITH PATIENT'S DAUGHTER.
--- NOTE | 2022-03-23 14:18 | NUR ---
PER TEXT FROM MICHAEL AT [facility], CHANGE OF PLANS THEY CAN ADMIT THE PATIENT TODAY BEFORE 1500. FAMILY ADVISED OF UPDATE, BUT CONCERNED ABOUT TRANSPORT TO FACILITY. AFTER SOME TIME PATIENTS DAUGHTER ABLE TO RESCHEDULE FLIGHT AND TRANSPORT PATIENT TO FACILITY. DR. FERNANDO AND BERNABE RN NOTIFIED. ORDERS, PT/ST/OT NOTES, COVID RESULTS AND DC SUMMARY FAXED TO [facility].
== END 2022-03-23 13:53 | DRG 377 ==
LOC: ED 00:39 → MS 01:51 → CCU 01:51 → MS 03-13 17:43
PROVIDERS: Surgery; ADMIT Internal Medicine; ATTEND Family Medicine
PROC: 30233N1 Transfusion of Nonautologous Red Blood Cells into Peripheral Vein, Percutaneous Approach (ICD-10-PCS; 2022-03-12)
PROC: 30283B1 Transfusion of Nonautologous 4-Factor Prothrombin Complex Concentrate into Vein, Percutaneous Approach (ICD-10-PCS; 2022-03-12)
PROC: 0DB68ZX Excision of Stomach, Via Natural or Artificial Opening Endoscopic, Diagnostic (ICD-10-PCS; principal; 2022-03-12 13:00)
PROC: 0DBE8ZX Excision of Large Intestine, Via Natural or Artificial Opening Endoscopic, Diagnostic (ICD-10-PCS; 2022-03-13)
PROC: 05HF33Z Insertion of Infusion Device into Left Cephalic Vein, Percutaneous Approach (ICD-10-PCS; 2022-03-20)
DX: K57.31 Diverticulosis of large intestine without perforation or abscess with bleeding (principal); I63.411 Cerebral infarction due to embolism of right middle cerebral artery; D62 Acute posthemorrhagic anemia; I48.20 Chronic atrial fibrillation, unspecified; Z20.822 Contact with and (suspected) exposure to COVID-19; K63.89 Other specified diseases of intestine; K63.5 Polyp of colon; K31.7 Polyp of stomach and duodenum; E87.6 Hypokalemia; E11.40 Type 2 diabetes mellitus with diabetic neuropathy, unspecified; E11.65 Type 2 diabetes mellitus with hyperglycemia; I10 Essential (primary) hypertension; E83.42 Hypomagnesemia; E66.9 Obesity, unspecified; D72.829 Elevated white blood cell count, unspecified; G83.24 Monoplegia of upper limb affecting left nondominant side; R29.810 Facial weakness; Z66 Do not resuscitate; Z68.28 Body mass index [BMI] 28.0-28.9, adult; Z79.01 Long term (current) use of anticoagulants; Z79.899 Other long term (current) drug therapy; Z79.84 Long term (current) use of oral hypoglycemic drugs
CPT/HCPCS: 00731; 00811; 36415; 36430; 36569; 70450; 70496; 70498; 71045; 74177; 74230; 78278; 80048; 80053; 80061; 80162; 81001; 83036; 83605; 83735; 85025; 85060; 85610; 85730; 86850; 86900; 86901; 86922; 87040; 87502; 88305; 92610; 92611; 93005; 93010; 94760; 94762; 97110; 97116; 97162; 97166; 97530; A9270; A9560; C1751; C9113; C9803; J1160; J1815; J1940; J2001; J2370; J2405; J2543; J2704; J3430; J3475; J3480; J7030; J7120; J7121; J7168; P9016; Q9967; U0003